=== PATIENT | male | born 1960 | race Caucasian/White ===

== ENCOUNTER 2018-06-11 07:13 | Outpatient (CLI) | payer OTHER, SELFPAY ==
[2018-06-11 08:36] LABS: Cholesterol 210 mg/dL (50-200); Glucose 100 mg/dL (70-100); HDL Cholesterol 52 mg/dL (40-60); LDL CHOLESTEROL 128 mg/dL (<100); Triglyceride 180 mg/dL (30-150)
== END 2018-06-11 07:33 ==
PROVIDERS: PCP Nurse Practitioner Family; Visit Provider Nurse Practitioner Family
DX: Z00.00 Encounter for general adult medical examination without abnormal findings (principal); Z13.1 Encounter for screening for diabetes mellitus; I10 Essential (primary) hypertension
CPT/HCPCS: 36415; 80061; 82947; 83721

== ENCOUNTER 2018-11-27 16:03 | Outpatient (REF) | payer OTHER, SELFPAY ==
[2018-11-27 19:59] LABS: Anion Gap 11.5 mmol/L (3-11); BUN 15 mg/dL (7-18); CO2 28.5 mmol/L (21.0-32.0); CREATININE 0.95 mg/dL (0.70-1.30); Calcium 9.4 mg/dL (8.5-10.1); Chloride 102 mmol/L (98-107); Glucose 92 mg/dL (70-100); Potassium 3.9 mmol/L (3.5-5.1); Sodium 142 mmol/L (136-145)
== END 2018-11-27 16:23 ==
LOC: NCHCN 16:03
PROVIDERS: PCP Nurse Practitioner Family; Visit Provider Nurse Practitioner Family
DX: I10 Essential (primary) hypertension (principal); M25.511 Pain in right shoulder
CPT/HCPCS: 80048

== ENCOUNTER 2019-03-11 11:09 | Day surgery (SDC) | payer OTHER, SELFPAY ==
--- NOTE | 2019-03-11 07:17 | W.COLOREPORT ---
Date of service: 03/11/19 Time of Service: 12:42 Colonoscopy Report Date of procedure: 03/11/19 Pre-op diagnosis general: Hx of polyps Post-op diagnosis procedure note: other (Diverticulosis) Procedure: Colonoscopy Surgeon: Cony Neal Anesthesia proc note operative: other (General/ ASA 2/Davina Law, NORAH) Estimated blood loss (mL): 3 Pathology: none sent Complications: None Disposition: same day Indications: Mr. Cavazos is a pleasant 58 year old male who was seen in the office for a follow up colonoscopy. He had a colonoscopy in 2011 and was found to have one sessile serrated adenoma and a hyperplastic polyp. Risks, benefits and complications have been reviewed. Complications include but are not limited to bleeding, pain, perforation, missed small lesion/polyp, sore throat, aspiration and adverse reaction to the medications. Questions were entertained and answered to their satisfaction and they wished to proceed. No guarantees were given or implied. Prep: Miralax/Dulcolax Procedure Start Time: 12:42 Procedure End Time: 13:10 Retraction Time: 18 minutes Findings: Diverticulosis Procedure Description: After informed consent was obtained the patient was taken to the procedure room and placed in a left decubitous position. Monitors were applied and a time out was done. The patients name, date of , procedure, allergies to medications and metal in their body was reviewed. The patient was then sedated. Once sedated and comfortable a rectal exam was done. External exam was normal. Internal exam revealed a normal sphincter tone and no palpable masses. The prostate felt smooth. The scope was then introduced and retro-flexed. No internal hemorrhoids were identified. The scope was then advanced to the cecum without difficulty. The TI and appendiceal orifice were identified. The prep was adequate. The scope was then slowly retracted over 18 minutes back into the rectum. There were no polyps identified. The procedure was difficult due to the patients coughing throughout the procedure. There was moderate diverticulosis noted in the sigmoid colon. The scope was removed and the patient was woken up and taken back to Same day surgery in stable condition. The patient tolerated the procedure well and there were no immediate complications. Follow up: The patient should follow up in 3 years, due to his previous history of sessile serrated adenoma, unless they develop changes in bowel habits or other new gastrointestinal complaints.
--- NOTE | 2019-03-11 07:18 | W.PM.DSUDISC ---
Discharge Plan Disposition Patient Disposition: HOME Condition: Good Discharge Details Reason For Visit: Hx of polyps Attending Provider: Cony Neal Primary Care Provider: Meghna Clark Home Meds and New Rx's Prescriptions: Continued aspirin [Adult Low Dose Aspirin] 81 mg tablet,delayed release (DR/EC) 81 mg PO DAILY RF: 0 epinephrine [EpiPen 2-Anibal] 0.3 mg/0.3 mL auto-injector 0.3 mg IM ONCE RF: 0 omega-3 fatty acids [Fish Oil Concentrate] 1,000 mg capsule 1,000 mg PO DAILY RF: 0 lisinopril 20 MG tablet 20 mg PO DAILY RF: 0 hydrochlorothiazide 25 MG tablet 25 mg PO DAILY RF: 0 Discontinued polyethylene glycol 3350 17 gram/dose powder 238 g PO ONCE Qty: 238 RF: 0 bisacodyl [Dulcolax (bisacodyl)] 5 mg tablet,delayed release (DR/EC) 5 mg PO ONCE Qty: 4 RF: 0 Discharge Instructions Instructions: Diverticulosis (DC) Additional Instructions: Findings: Diverticulosis Follow up: 3 years due to your history of previous pre-cancerous polyp Please call if you develop: fevers >101.5 Nausea or Vomiting Abdominal pain that is not transient DAY SURGERY UNIT POST ENDOSCOPY INSTRUCTIONS 1. Because there will be medication in your system for the next 24 hours, you may feel a little sleepy. Your coordination will be affected. Therefore: a. Do not drive or operate dangerous equipment for 24 hours. b. Do not drink alcohol beverages for 24 hours (not even beer). c. Plan to go home and rest for the day. 2. Generally there are no restrictions on your activity after a day or so has gone by, but you may feel a bit fatigued for a few days. 3 After you arrive home you may have a light meal and return to a normal diet as you can tolerate it without feeling sick to your stomach. 4. After surgery, you may feel pain or discomfort. This should be only transient, but if it persists please contact your doctor. 5. If there are any questions regarding the findings of your procedure, please feel free to contact your doctor. 6. If you are unable to contact your doctor with a problem, contact the hospital at [phone]. 7. Continue all your regular medications unless directed otherwise. I understand the above instructions and have no questions. Signature of Patient or Responsible Adult Escort Date/Time Name of Responsible Adult Escort Signature of Nurse Date/Time Activity:: Activity as Tolerated Diet:: High Fiber Diet Discharge Orders Discharge Orders: Discharge Order (Routine); Ordered 03/11/19 Ordered By: Cony Neal DS: Diagnosis Discharge Diagnosis (1) S/P colonoscopy: Status: Acute (2) Diverticulosis: Status: Acute
[2019-03-11 11:29] VITALS: BP 132/80; PULSE 87; RESP 18; TEMP 37.3; O2SAT 96
[2019-03-11] MEDS: Lactated Ringers 1,000 ML 80 ML IV (11:50)
[2019-03-11 13:48] VITALS: BP 100/57; PULSE 85; RESP 16; TEMP 37.4; O2SAT 96
== END 2019-03-11 14:14 | disposition home or self-care (01) ==
PROVIDERS: PCP Nurse Practitioner Family; Visit Provider Surgery
PROC: 0DJD8ZZ Inspection of Lower Intestinal Tract, Via Natural or Artificial Opening Endoscopic (ICD-10-PCS; CPT 45378; principal; 2019-03-11 12:45)
DX: Z12.11 Encounter for screening for malignant neoplasm of colon (principal); Z86.010 Personal history of colon polyps; K57.30 Diverticulosis of large intestine without perforation or abscess without bleeding; I10 Essential (primary) hypertension
CPT/HCPCS: 45378

== ENCOUNTER 2019-05-25 01:44 | Outpatient (CLI) | payer OTHER, SELFPAY ==
[2019-05-25 11:28] LABS: Glucose 93 mg/dL (74-106)
[2019-05-25 11:58] LABS: Calculated LDL 116 mg/dL; Cholesterol 190 mg/dL (<200); HDL Cholesterol 49 mg/dL (40-60); Triglyceride 129 mg/dL (<150)
== END 2019-05-25 02:04 ==
PROVIDERS: PCP Nurse Practitioner Family; Visit Provider Nurse Practitioner Family
DX: Z00.00 Encounter for general adult medical examination without abnormal findings (principal); Z13.1 Encounter for screening for diabetes mellitus; Z13.220 Encounter for screening for lipoid disorders
CPT/HCPCS: 36415; 80061; 82947

== ENCOUNTER 2019-12-17 22:58 | Outpatient (REF) | payer OTHER, SELFPAY ==
[2019-12-17 20:14] LABS: Anion Gap 8.5 mmol/L (3-11); BUN 19 mg/dL (7-18); CO2 30.5 mmol/L (21.0-32.0); CREATININE 1.08 mg/dL (0.70-1.30); Calcium 9.4 mg/dL (8.5-10.1); Chloride 102 mmol/L (98-107); Glucose 98 mg/dL (74-106); Potassium 4.3 mmol/L (3.5-5.1); Sodium 141 mmol/L (136-145)
== END 2019-12-17 23:18 ==
LOC: NCHCN 22:58
PROVIDERS: PCP Nurse Practitioner Family; Visit Provider Nurse Practitioner Family
DX: I10 Essential (primary) hypertension (principal); E66.9 Obesity, unspecified; M19.011 Primary osteoarthritis, right shoulder; J30.9 Allergic rhinitis, unspecified
CPT/HCPCS: 80048

== ENCOUNTER 2020-02-13 19:07 | Outpatient (REF) | payer OTHER, SELFPAY ==
[2020-02-15 22:23] LABS: Patient Race White; SARS-CoV-2 RNA Undetected (Undetected); SARS-CoV-2 Specimen Source Nasopharynx
== END 2020-02-13 19:27 ==
LOC: NCHCN 19:07
PROVIDERS: PCP Nurse Practitioner Family; Visit Provider Nurse Practitioner Family
DX: R05 Cough (principal)
CPT/HCPCS: U0003

== ENCOUNTER 2020-05-29 02:22 | Outpatient (CLI) | payer OTHER, SELFPAY ==
[2020-05-29 08:44] LABS: Calculated LDL 113 mg/dL (<100); Cholesterol 187 mg/dL (<200); Glucose 97 mg/dL (74-106); HDL Cholesterol 52 mg/dL (40-60); Triglyceride 112 mg/dL (<150)
== END 2020-05-29 02:42 ==
PROVIDERS: PCP Nurse Practitioner Family; Visit Provider Nurse Practitioner Family
DX: Z00.00 Encounter for general adult medical examination without abnormal findings (principal); I10 Essential (primary) hypertension; E66.9 Obesity, unspecified; J30.9 Allergic rhinitis, unspecified
CPT/HCPCS: 36415; 80061; 82947

== ENCOUNTER 2020-11-27 17:13 | Outpatient (REF) | payer OTHER, SELFPAY ==
[2020-11-27 14:17] LABS: Calculated LDL 117 mg/dL (<100); Cholesterol 188 mg/dL (<200); HDL Cholesterol 50 mg/dL (40-60); Triglyceride 106 mg/dL (<150)
== END 2020-11-27 17:14 | disposition home or self-care (01) ==
LOC: NCHCN 17:13
PROVIDERS: PCP Nurse Practitioner Family; Visit Provider Nurse Practitioner Family
DX: Z00.00 Encounter for general adult medical examination without abnormal findings (principal); Z13.220 Encounter for screening for lipoid disorders
CPT/HCPCS: 80061

== ENCOUNTER 2021-06-01 16:06 | Outpatient (REF) | payer OTHER, SELFPAY ==
[2021-06-01 21:28] LABS: Anion Gap 9.7 mmol/L (3-11); BUN 21 mg/dL (7-18); CO2 28.3 mmol/L (21.0-32.0); Calcium 8.8 mg/dL (8.5-10.1); Chloride 101 mmol/L (98-107); Glucose 103 mg/dL (74-106); Potassium 3.8 mmol/L (3.5-5.1); Sodium 139 mmol/L (136-145)
== END 2021-06-01 16:07 | disposition home or self-care (01) ==
LOC: NCHCN 16:06
PROVIDERS: PCP Nurse Practitioner Family; Visit Provider Nurse Practitioner Family
DX: I10 Essential (primary) hypertension (principal); Z00.00 Encounter for general adult medical examination without abnormal findings
CPT/HCPCS: 80048

== ENCOUNTER 2021-11-19 01:54 | Outpatient (CLI) | payer OTHER, SELFPAY ==
[2021-11-19 08:15] LABS: Calculated LDL 108 mg/dL (<100); Cholesterol 183 mg/dL (<200); HDL Cholesterol 53 mg/dL (40-60); Triglyceride 112 mg/dL (<150)
== END 2021-11-19 01:55 | disposition home or self-care (01) ==
LOC: LBO 01:54
PROVIDERS: PCP Nurse Practitioner Family; Visit Provider Nurse Practitioner Family
DX: Z00.00 Encounter for general adult medical examination without abnormal findings (principal); Z13.220 Encounter for screening for lipoid disorders
CPT/HCPCS: 36415; 80061

== ENCOUNTER 2021-12-10 01:11 | Outpatient (CLI) | payer OTHER, SELFPAY ==
--- NOTE | 2021-12-10 | DI.RAD_ITS ---
Exam(s) XR KNEE RT 3V AP,LAT,TERRI EXAM: XR KNEE RT 3V AP,LAT,TERRI CLINICAL HISTORY: RT KNEE PAIN, M25.561. TECHNIQUE: 2D digital imaging was performed. COMPARISON: CR LEFT KNEE 3 VIEW COMPLETE from 11/18/2014 FINDINGS: 3 views No evidence of acute fracture although there does appear to be a small joint effusion. There are moderate degenerative changes of the medial compartment. On the upright film there is mode rate narrowing of the medial compartment and small marginal osteophytes. Lateral compartment exhibit s normal height. Some degenerative changes noted in the patellofemoral compartment-moderate. No oss eous lesions. Bone density normal. IMPRESSION: Moderate degenerative changes, most evident in the medial compartment. Small joint effusion DATA REPOSITORY: RADIATION DOSE DELIVERED:
== END 2021-12-10 01:31 ==
LOC: DI 01:11
PROVIDERS: PCP Nurse Practitioner Family; Visit Provider Nurse Practitioner Family
DX: M17.11 Unilateral primary osteoarthritis, right knee (principal); M25.461 Effusion, right knee
CPT/HCPCS: 73562

== ENCOUNTER 2022-05-16 21:45 | Outpatient (REF) | payer OTHER, SELFPAY ==
[2022-05-16 20:15] LABS: Anion Gap 9.8 mmol/L (3-11); BUN 19 mg/dL (7-18); CO2 28.2 mmol/L (21.0-32.0); CREATININE 1.1 mg/dL (0.70-1.30); Chloride 103 mmol/L (98-107); Estimated GFR 76.85 (mL/min/1.73m2); Glucose 104 mg/dL (74-106); Potassium 3.9 mmol/L (3.5-5.1); Sodium 141 mmol/L (136-145)
== END 2022-05-16 21:46 | disposition home or self-care (01) ==
LOC: NCHCN 21:45
PROVIDERS: PCP Nurse Practitioner Family; Visit Provider Nurse Practitioner Family
DX: I10 Essential (primary) hypertension (principal)
CPT/HCPCS: 80048

== ENCOUNTER 2022-07-08 10:40 | Outpatient (CLI) | payer OTHER, SELFPAY ==
--- NOTE | 2022-07-08 09:30 | DI.RAD_ITS ---
Exam(s) XR KNEE LT 3V AP,LAT,TERRI EXAM: XR KNEE LT 3V AP,LAT,TERRI CLINICAL HISTORY: left knee pain. TECHNIQUE: 2D digital imaging was performed of the left knee. Three images were obtained. AP, late ral and PA tunnel views were obtained. COMPARISON: CR XR KNEE RT 3V AP,LAT,TERRI from 12/10/2021 FINDINGS: BONES: No acute fracture is present. No bony destructive lesion is seen. JOINTS: The knee is normally aligned. There is a small joint effusion. There is moderate narrowing o f the medial femoral tibial joint. Periarticular spurring is seen involving all 3 joint compartments . SOFT TISSUE: Normal. IMPRESSION: Moderate osteoarthritis. DATA REPOSITORY: RADIATION DOSE DELIVERED:
== END 2022-07-08 10:41 | disposition home or self-care (01) ==
LOC: DIORS 10:40
PROVIDERS: PCP Nurse Practitioner Family; Visit Provider Physician Assistant
DX: M25.562 Pain in left knee (principal); M17.12 Unilateral primary osteoarthritis, left knee; M25.462 Effusion, left knee
CPT/HCPCS: 73562

== ENCOUNTER 2022-11-03 03:16 | Outpatient (CLI) | payer OTHER, SELFPAY ==
[2022-11-03 08:04] LABS: Calculated LDL 88 mg/dL (<100); Cholesterol 161 mg/dL (<200); HDL Cholesterol 53 mg/dL (40-60); Triglyceride 102 mg/dL (<150)
== END 2022-11-03 03:17 | disposition home or self-care (01) ==
LOC: LBO 03:16
PROVIDERS: PCP Nurse Practitioner Family; Visit Provider Nurse Practitioner Family
DX: E78.89 Other lipoprotein metabolism disorders (principal)
CPT/HCPCS: 36415; 80061

== ENCOUNTER 2023-07-26 16:26 | Outpatient (REF) | payer OTHER, SELFPAY ==
[2023-07-26 20:07] LABS: Anion Gap 8.1 mmol/L (3-11); BUN 20 mg/dL (7-18); CO2 28.9 mmol/L (21.0-32.0); CREATININE 0.9 mg/dL (0.70-1.30); Calcium 9.2 mg/dL (8.5-10.1); Chloride 103 mmol/L (98-107); Estimated GFR 97.17 (mL/min/1.73m2); Glucose 103 mg/dL (74-106); Potassium 3.9 mmol/L (3.5-5.1); Sodium 140 mmol/L (136-145)
== END 2023-07-26 16:27 | disposition home or self-care (01) ==
LOC: NCHCN 16:26
PROVIDERS: PCP Nurse Practitioner Family; Visit Provider Nurse Practitioner Family
DX: I10 Essential (primary) hypertension (principal)
CPT/HCPCS: 80048

== ENCOUNTER 2024-05-27 15:35 | Outpatient (REF) | payer OTHER, SELFPAY | END 2024-05-27 15:36 | disposition home or self-care (01) | LOC: LBN 15:35 | PROVIDERS: PCP Nurse Practitioner Family; Visit Provider Physician Assistant | DX: L98.9 Disorder of the skin and subcutaneous tissue, unspecified (principal); N30.90 Cystitis, unspecified without hematuria; L02.91 Cutaneous abscess, unspecified | CPT/HCPCS: 87077; 87070; 87186; 87205 ==

== ENCOUNTER 2024-05-29 10:03 | Inpatient (IN) | payer OTHER, SELFPAY ==
[2024-05-29] VITALS (12 sets, daily range): BP systolic 100–160; BP diastolic 60–90; PULSE 66–90; RESP 12–18; TEMP 36.6–37.1; O2SAT 96–99
--- NOTE | 2024-05-29 10:17 | W.ED.GENAD ---
Discharge Plan Disposition Patient Disposition: Admit to [facility] Condition: Stable Discharge Details Chief Complaint: Cellulitis Clinical Impression: Cellulitis of groin Primary Care Provider: Meghna Clark ED Provider: Tavo Zambrano Home Meds and New Rx's Prescriptions: No Action aspirin [Adult Low Dose Aspirin] 81 mg tablet,delayed release (DR/EC) 81 mg PO DAILY epinephrine [EpiPen 2-Anibal] 0.3 mg/0.3 mL auto-injector 0.3 mg IM ONCE omega-3 fatty acids [Fish Oil Concentrate] 1,000 mg capsule 1,000 mg PO DAILY cephalexin 500 mg capsule 500 mg PO QID Qty: 40 0RF doxycycline hyclate 100 mg capsule 100 mg PO BID Qty: 20 0RF glucosamine-chondroitin [Osteo Bi-Flex] 250-200 mg tablet 2 tab PO DAILY Rx Instructions: give after food/meal hydrochlorothiazide 25 mg tablet 25 mg PO DAILY Qty: 90 3RF lisinopril 20 mg tablet 20 mg PO DAILY Qty: 90 3RF HPI General Date/Time Provider Initiated Documentation: 05/29/24 10:13. HPI Narrative: 63 year-old male presents to ED today by POV/ambulating with his with a chief complaint of known abscesses seen at - with lancing and placed on cephalexin and doxycycline, but they are still draining and getting larger. Quality described as painful areas to R medial thigh, and L suprapubic area, no radiation to fever, chills, body aches, nausea, dysuria, weakness, tachycardia. Severity is described as severe. Palliating factors include antibiotics with worsening. Provoking factors include nothing specific, palpation. Patient not anticoagulated. Related Data Home Medications ?Medication ?Instructions ?Recorded ?Confirmed aspirin 81 mg tablet,delayed 81 mg PO DAILY 01/08/19 05/29/24 release (Adult Low Dose Aspirin) epinephrine 0.3 mg/0.3 mL 0.3 mg IM ONCE 01/08/19 05/29/24 injection, auto-injector (EpiPen 2-Anibal) omega-3 fatty acids 1,000 mg 1,000 mg PO DAILY 01/08/19 05/29/24 capsule (Fish Oil Concentrate) glucosamine-chondroitin 250 mg-200 2 tab PO DAILY 04/04/24 05/29/24 mg tablet (Osteo Bi-Flex) hydrochlorothiazide 25 mg tablet 25 mg PO DAILY #90 tabs 04/24/24 05/29/24 lisinopril 20 mg tablet 20 mg PO DAILY #90 tabs 05/14/24 05/29/24 cephalexin 500 mg capsule 500 mg PO QID #40 caps 05/27/24 05/29/24 doxycycline hyclate 100 mg capsule 100 mg PO BID #20 caps 05/27/24 05/29/24 Previous Rx's ?Medication ?Instructions ?Recorded hydrochlorothiazide 25 mg tablet 25 mg PO DAILY #90 tabs 04/24/24 lisinopril 20 mg tablet 20 mg PO DAILY #90 tabs 05/14/24 cephalexin 500 mg capsule 500 mg PO QID #40 caps 05/27/24 doxycycline hyclate 100 mg capsule 100 mg PO BID #20 caps 05/27/24 Allergies Allergy/AdvReac Type Severity Reaction Status Date / Time Sulfa (Sulfonamide Allergy Unknown Skin Rash Verified 05/29/24 10:13 Antibiotics) venom-honey bee (bee venom Allergy Unknown Swelling/Ed Verified 05/29/24 10:13 (honey bee)) jad General Stated Complaint: Cellulitis VERONA: 3 Review of Systems All systems reviewed & are unremarkable except as noted in HPI and below Exam Narrative Exam Narrative: GENERAL APPEARANCE: Well-nourished, non-toxic, awake and alert, atraumatic, no acute distress. SKIN: Warm, pink, dry, large indurated swollen red areas draining purulent material to the right medial thigh as well as left suprapubic area, the right medial thigh area is about 8 x 4 cm of induration, the left suprapubic area is about 4 x 5 cm of induration with some base of penile shaft involvement and swelling, no fluctuant areas to drain at this time, there is scant purulent material draining HEAD: Normocephalic, atraumatic, normal hair distribution for gender/age. EYES: Normal conjunctiva, no exudates on lids/lashes. ENT: Nares patent, no circumoral cyanosis, no facial swelling NECK: Supple, trachea midline, painless cervical ROM. LUNGS/CHEST: Non-labored respirations, normal A/P diameter, symmetrical expansion, no chest wall deformity HEART (CV/PV): No peripheral edema, no JVD. ABDOMEN: Soft, non-distended, no guarding. MSK: Normal ROM, no swelling/deformity to bilateral UEs or LEs, moving all extremities without weakness, no cyanosis, spine midline without tenderness, normal curvature. NEURO: Mental Status AAOx4 - alert to person, place, time, events No facial droop, no forehead involvement. Motor: No focal weakness - strength 5/5 in bilateral UEs and LEs, proximal and distal, symmetric. Sensory: sensation intact to light touch globally. Gait normal: patient ambulated without ataxia into ED room. PSYCH: euthymic, cooperative, pleasant, appropriate speech Course Vital Signs Vital signs: Vital Signs Temperature 36.7 C 05/29/24 10:06 Pulse 90 05/29/24 10:06 Respiratory Rate 16 05/29/24 10:06 Blood Pressure 146/81 H 05/29/24 10:06 Pulse Oximetry 96 05/29/24 10:06 Temperature 36.7 C 05/29/24 10:06 Temperature Source Temporal Artery Scan 05/29/24 10:06 Pulse 90 05/29/24 10:06 Respiratory Rate 16 05/29/24 10:06 Blood Pressure 146/81 H 05/29/24 10:06 Blood Pressure Position Sitting 05/29/24 10:06 Pulse Oximetry 96 05/29/24 10:06 Oxygen Delivery Method Room Air 05/29/24 10:06 Oxygen Flow Rate 0 05/29/24 10:06 Pain Level 7 05/29/24 10:06 Medical Decision Making This dictation utilizes [id number] dictation software and may contain unedited grammatical errors. 63 year-old male presents to ED today by POV/ambulating with his with a chief complaint of known abscesses seen at - with lancing and placed on cephalexin and doxycycline, but they are still draining and getting larger. Quality described as painful areas to R medial thigh, and L suprapubic area, no radiation to fever, chills, body aches, nausea, dysuria, weakness, tachycardia. Severity is described as severe. Palliating factors include antibiotics with worsening. Provoking factors include nothing specific, palpation. Patients' medical history: Obesity, hypertension. Family and social history: Noncontributory. Pertinent exam findings / vital signs include large indurated swollen red areas draining purulent material to the right medial thigh as well as left suprapubic area, the right medial thigh area is about 8 x 4 cm of induration, the left suprapubic area is about 4 x 5 cm of induration with some base of penile shaft involvement and swelling, no fluctuant areas to drain at this time, there is scant purulent material draining, nontoxic vitals, afebrile. Differential / pathologies of concern include cellulitis, abscess, Oral's gangrene. Diagnostic studies of: -CBC, CMP, CT pelvis with extension to the right lower extremity. -CBC shows no leukocytosis -CMP no actionable abnormality -CT shows large right medial thigh cellulitis as well as a left suprapubic cellulitis with extension to the penile shaft with no discernible drainable fluid collection at this time Interventions of: -IV vancomycin, admit to hospitalist after consult with general surgery. ED Course/Assessment/Plan: 63-year-old male presents with known MRSA positive abscesses to the right medial thigh and left suprapubic area, these are draining, there is no discernible fluid pocket to drain at this time, CT shows some extension of the suprapubic infection to the penile shaft, and close proximity to the scrotum and I think the patient should be admitted for ops on IV antibiotics and reassessed to ensure trending in the correct direction and not at risk for Oral's gangrene, I spoke with general surgery Dr. Wyman agrees with this plan, and placed the patient on IV vancomycin and spoke with Dr. Powell who accepted the patient for admission at 1430. Disposition of Cellulitis of Groin. Patient verbalized understanding of the plan and return to ED criteria and engaged in shared decision making. Medical Records Medical records reviewed: Yes I reviewed the patient's medical records. Imaging Data Radiologic Study: Attestation: I personally reviewed and interpreted this imaging study as follows: Imaging: CT Scan My impression: In discussion with Dr. Wyman- as the CT Pelvis was not supposed to be cancelled- there is infection spreading to penile shaft. Radiologist's impression: EXAM: CT LOWER EXTREMITY RT W CLINICAL HISTORY: R inner thigh abscess. TECHNIQUE: Imaging Protocol: Axial computed tomography images with coronal and sagittal reformatted images were created and reviewed. CONTRAST MATERIAL: Intravenous: Omnipaque 350. Contrast Volume: 100 ML COMPARISON: No exams were available for comparison FINDINGS: Bones: The osseous structures and articular surfaces are intact. Bony alignment is satisfactory. No cellulitic or osteomyelitic changes are identified. Degenerative changes are seen in the right knee. No lytic or sclerotic lesions are identified. Soft Tissues: There is skin thickening in the medial aspect of the right thigh with infiltration of the subcutaneous tissues. There is a 1.3 x 1 cm superficial fluid collection which may represent a small abscess (series 14, image 66) and (series 4, image 719). The underlying musculature is unremarkable. No subcutaneous gas is seen. IMPRESSION: 1. Cellulitis in the medial aspect of the right thigh with a superficial 1.3 x 1 cm fluid collection which may represent a small abscess. No subcutaneous gas is seen. 2. No findings to suggest osteomyelitis. Lab Data Lab results reviewed: Yes I reviewed the patient's lab results. Labs: Laboratory Tests Range/Units 05/29/24 10:42 WBC (4.4-10.8) 10^3/uL 9.05 RBC (4.36-5.78) 10^6/uL 4.35 L Hgb (13.5-17.5) g/dL 14.1 Hct (40.0-50.0) % 42.1 MCV (80-95) fL 97 H MCH (27.0-33.0) pg 32.4 MCHC (32.0-36.0) % 33.5 RDW (11.8-14.1) % 12.2 Plt Count (130-400) 10^3/uL 351 MPV (8.0-11.0) fL 9.5 Immature Gran % % 0.3 Neutrophils % % 70.4 Lymphocytes % % 11.9 Monocytes % % 12.5 Eosinophils % % 4.5 Basophils % % 0.4 Nucleated RBC % (0.0-0.3) % 0.0 Absolute Neutrophils (1.2-6.7) 10^3/uL 6.36 Absolute Lymphocytes (1.2-3.4) 10^3/uL 1.08 L Absolute Monocytes (0.1-0.8) 10^3/uL 1.13 H Absolute Eosinophils (0.0-0.7) 10^3/uL 0.41 Absolute Basophils (0.0-0.2) 10^3/uL 0.04 Sodium (136-145) mmol/L 141 Potassium (3.5-5.1) mmol/L 3.7 Chloride (98-107) mmol/L 103 Carbon Dioxide (21.0-32.0) mmol/L 29.6 Anion Gap (3-11) mmol/L 8.4 BUN (7-18) mg/dL 19 H Creatinine (0.70-1.30) mg/dL 0.9 Est GFR (CKD-EPI 2020) (mL/min/1.73m2) 96.57 Glucose (74-106) mg/dL 110 H Calcium (8.5-10.1) mg/dL 9.1 Total Bilirubin (0.2-1.0) mg/dL 0.63 AST (15-37) U/L 13 L ALT (16-63) U/L 23 Alkaline Phosphatase (46-116) U/L 77 Total Protein (6.4-8.2) g/dL 8.0 Albumin (3.4-5.0) g/dL 3.5 Quality:[facility] Health Related Social Needs: No Data to Display PFSH All Active Problems (Updated 05/29/24 @ 14:40 by JOCELYNN Marte) Cellulitis of groin (Acute) Decreased hearing (Acute) Degenerative joint disease of knee (Acute) Osteoarthritis of right glenohumeral joint (Acute) Knee pain, bilateral (Acute) Snoring (Acute) Abnormal cholesterol test (Acute) Degenerative joint disease of right knee (Acute) DEPO MEDROL 07/25/22 Left knee DJD (Acute) DEPO MEDROL 07/25/22 Diverticulosis (Acute) S/P colonoscopy (Acute ~03/11/19) 2008- sessile serrated adenoma and hyperplastic polyp Bee sting allergy (Acute) Obesity (Chronic) Hypertension (Chronic) Medical History Screening for colon cancer Allergic rhinitis Allergy to insects and arachnids Tobacco use disorder Strain of right calf muscle Resolved - Placed at [facility] on 05/13/2022 History of colon polyps Surgical History History of surgical removal of skin lesion R under arm Family History Sister Breast cancer Hypertension Mother Diabetes Hypertension Father Hypertension Social History Smoking/Tobacco Use Status: Never Smokeless tobacco user: chewing tobacco Quit status: has quit before Second Hand Exposure: Yes Smoking risk assessment performed?: Yes Alcohol Intake: current Alcohol Intake frequency: 0-2 drinks per day Alcohol type: beer Drug use: Never Substance use type: does not use Details: last chew: [id number]. 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 Pets and animals: Yes Pets and animals: cat(s) Sexually active: Yes Do you think of yourself as: straight/heterosexual Current gender identity: male What is your relationship status?: How often do you talk on the phone with friends or family?: twice per week How often do you get together with friends or relatives?: twice per week Do you belong to any clubs or organized social groups?: no Panel score (0-1 are the most socially isolated patients): 2 What type of physical activity do you participate in: walking and additional Details: stretching Duration: 30-45 minutes/day Frequency: daily Nuria/Rastafarian: Jewish Special nuria needs: No Seatbelt use: always Drive 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
--- NOTE | 2024-05-29 10:30 | DI.CT_ITS ---
Exam(s) CT LOWER EXTREMITY RT W EXAM: CT LOWER EXTREMITY RT W CLINICAL HISTORY: R inner thigh abscess. TECHNIQUE: Imaging Protocol: Axial computed tomography images with coronal and sagittal reformatted images were created and reviewed. CONTRAST MATERIAL: Intravenous: Omnipaque 350. Contrast Volume: 100 ML COMPARISON: No exams were available for comparison FINDINGS: Bones: The osseous structures and articular surfaces are intact. Bony alignment is satisfactory. N o cellulitic or osteomyelitic changes are identified. Degenerative changes are seen in the right kne e. No lytic or sclerotic lesions are identified. Soft Tissues: There is skin thickening in the medial aspect of the right thigh with infiltration of t he subcutaneous tissues. There is a 1.3 x 1 cm superficial fluid collection which may represent a sm all abscess (series 14, image 66) and (series 4, image 719). The underlying musculature is unremarka ble. No subcutaneous gas is seen. IMPRESSION: 1. Cellulitis in the medial aspect of the right thigh with a superficial 1.3 x 1 cm fluid collection which may represent a small abscess. No subcutaneous gas is seen. 2. No findings to suggest osteomyelitis. RADIATION DOSE DELIVERED: 1,277.4mGy.cm Total DLP 1,277.4mGy.cm Total DLP DATA REPOSITORY: All CT scans at this facility are submitted to the National Radiology Data Registry (NRDR) Dose Index Registry (DIR) with the [employer] (A[employer]). RADIATION OPTIMIZATION: All CT scans at this facility use at least one of these dose optimization te chniques: automated exposure control; mA and/or kV adjustment per patient size (includes targeted exa ms where dose is matched to clinical indication); or iterative reconstruction.
[2024-05-29 10:48] LABS: Abs Immature Grans 0.03 10^3/uL (0.0-0.06); Absolute Basophil Count 0.04 10^3/uL (0.0-0.2); Absolute Eosinophil Count 0.41 10^3/uL (0.0-0.7); Absolute Lymphocyte Count 1.08 10^3/uL (1.2-3.4); Absolute Monocyte Count 1.13 10^3/uL (0.1-0.8); Absolute Neutrophil Count 6.36 10^3/uL (1.2-6.7); Basophils % 0.4 %; Eosinophils % 4.5 %; HCT 42.1 % (40.0-50.0); HGB 14.1 g/dL (13.5-17.5); Immature Grans % 0.3 %; Lymphocytes % 11.9 %; MCH 32.4 pg (27.0-33.0); MCHC 33.5 % (32.0-36.0); MCV 97 fL (80-95); MPV 9.5 fL (8.0-11.0); Monocytes % 12.5 %; Neutrophils % 70.4 %; Platelet Count 351 10^3/uL (130-400); RBC 4.35 10^6/uL (4.36-5.78); RDW 12.2 % (11.8-14.1); RDW-SD 43.7 fL; WBC 9.05 10^3/uL (4.4-10.8)
[2024-05-29 11:05] LABS: ALT 23 U/L (16-63); AST 13 U/L (15-37); Albumin 3.5 g/dL (3.4-5.0); Alkaline Phosphatase 77 U/L (46-116); Anion Gap 8.4 mmol/L (3-11); BUN 19 mg/dL (7-18); Bilirubin, Total 0.63 mg/dL (0.2-1.0); CO2 29.6 mmol/L (21.0-32.0); CREATININE 0.9 mg/dL (0.70-1.30); Calcium 9.1 mg/dL (8.5-10.1); Chloride 103 mmol/L (98-107); Estimated GFR 96.57 (mL/min/1.73m2); Glucose 110 mg/dL (74-106); Potassium 3.7 mmol/L (3.5-5.1); Sodium 141 mmol/L (136-145)
[2024-05-29] MEDS: Omnipaque 350 MG/ML 100 ML BTL IJ (12:27)
--- NOTE | 2024-05-29 14:14 | SCONE_ITS ---
Date of service: 05/29/24 Time of Service: 14:14 Assessment and Plan Assessment and plan (1) Abscess of right thigh: Status: Acute Assessment and plan: I was able to review the CT scan, and clearly there is quite a bit of cellulitis in the area. From the physical exam, it seems like the incision sites are probably adequate. I remove the old packing from the suprapubic area, and I think with some irrigation and new packing this will improve. Hopefully, the intravenous antibiotics will help as well. I have gone ahead and placed some nursing orders for dressing changes each shift. I am hopeful that this will not require any more operative debridement, but will reassess the wounds tomorrow make a decision at that point. History of Present Illness History of Present Illness Chief Complaint: Cellulitis Narrative: Sushil is 63 years old. He comes to the emergency department with draining wounds. He first noticed them about a week and 1/2 to 2 weeks ago. He describes them as areas of pain in the suprapubic region, and on the inside part of the right thigh. He thinks there may have been a little bit of redness associated with this. Over the course of about a week, they coalesced into a pimple, and he thinks it was on Monday at the 1 in the suprapubic region started draining spontaneously. He had some relief of pain in the area, but had some concerns regarding the nature of the drainage, and some spreading redness and swelling. He went to urgent care yesterday. They performed incision and drainage of these wounds, and it sounds like they packed them with some basic wound packing. Cultures were obtained. He tells me that the packing fell out of the thigh wound on its own, and when the wound continued to drain today, he came to the emergency department. It sounds like the wound cultures so far show MRSA, but without any specific antibiotic sensitivities. Review of Systems Constitutional Constitutional: Reports chills, Reports fatigue and Reports fever(s) Eyes Eyes: Reports system reviewed and no additional complaints, except as documented ENT Ears, Nose, Mouth, and Throat: Reports system reviewed and no additional complaints, except as documented Cardiovascular Cardiovascular: Denies chest pain and Denies dyspnea Respiratory Respiratory: Denies chest congestion, Reports cough, Denies excessive phlegm production and Denies dyspnea Gastrointestinal Gastrointestinal: Reports system reviewed and no additional complaints, except as documented Genitourinary Genitourinary: Denies hematospermia, Denies hematuria, Denies difficulty urinating, Reports genital pain and Denies testicular pain Musculoskeletal Musculoskeletal: Reports system reviewed and no additional complaints, except as documented Neurologic Neurologic: Reports system reviewed and no additional complaints, except as documented Psychiatric Psychiatric: Reports system reviewed and no additional complaints, except as documented Endocrine Endocrine: Reports fatigue Hematologic/Lymphatic Hematologic/Lymphatic: Denies easy bleeding and Denies easy bruising PFSH All Active Problems Discharge planning issues (Acute) On deep vein thrombosis (DVT) prophylaxis (Acute) Abscess of right thigh (Acute) Cellulitis of groin (Acute) Decreased hearing (Acute) Degenerative joint disease of knee (Acute) Osteoarthritis of right glenohumeral joint (Acute) Knee pain, bilateral (Acute) Snoring (Acute) Abnormal cholesterol test (Acute) Degenerative joint disease of right knee (Acute) DEPO MEDROL 07/25/22 Left knee DJD (Acute) DEPO MEDROL 07/25/22 Diverticulosis (Acute) S/P colonoscopy (Acute ~03/11/19) 2008- sessile serrated adenoma and hyperplastic polyp Bee sting allergy (Acute) Obesity (Chronic) Hypertension (Chronic) Medical History Screening for colon cancer Allergic rhinitis Allergy to insects and arachnids Tobacco use disorder Strain of right calf muscle Resolved - Placed at [facility] on 05/13/2022 History of colon polyps Surgical History History of surgical removal of skin lesion R under arm Family History Sister Breast cancer Hypertension Mother Diabetes Hypertension Father Hypertension Social History Smoking/Tobacco Use Status: Never Smokeless tobacco user: chewing tobacco Quit status: has quit before Second Hand Exposure: Yes Smoking risk assessment performed?: Yes Alcohol Intake: current Alcohol Intake frequency: 0-2 drinks per day Alcohol type: beer Drug use: Never Substance use type: does not use Details: last chew: 2099. 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 Pets and animals: Yes Pets and animals: cat(s) Sexually active: Yes Do you think of yourself as: straight/heterosexual Current gender identity: male What is your relationship status?: How often do you talk on the phone with friends or family?: twice per week How often do you get together with friends or relatives?: twice per week Do you belong to any clubs or organized social groups?: no Panel score (0-1 are the most socially isolated patients): 2 What type of physical activity do you participate in: walking and additional Details: stretching Duration: 30-45 minutes/day Frequency: daily Nuria/Christian: Amish Special nuria needs: No Seatbelt use: always Drive intox or ride w/intox driver lifter of sanitation truck: No Do you feel safe at home: Yes Do you feel safe in your relationship?: Yes Exam Const General: cooperative, healthy appearing and comfortable Nutritional Appearance: overweight Orientation: alert, awake and oriented x3 HENMT Head: normal to inspection Neck Neck: normal visual inspection, full ROM and no lymphadenopathy GI Inspection: normal to inspection and non-distended Palpation: soft and nontender Other: There is erythema and induration of the left suprapubic region that extends a little bit down to the base of the penis. I removed the old packing, gently irrigated. Back/Spine/Pelvis Other: On the upper inner portion of the right thigh, almost towards the perineum is an area of induration and a little bit of desquamation of the I&D site. This wound tracks slightly anteriorly about 3 cm. Results Last Vital Signs Temp 98.1 F 05/29/24 10:06 Pulse 90 05/29/24 10:06 Resp 16 05/29/24 10:06 BP 146/81 H 05/29/24 10:06 Pulse Ox 96 05/29/24 10:06 Labs 05/29/24 10:42 05/29/24 10:42 Labs: Laboratory Results - last 24 hr 05/29/24 10:42 WBC 9.05 RBC 4.35 L Hgb 14.1 Hct 42.1 MCV 97 H MCH 32.4 MCHC 33.5 RDW 12.2 Plt Count 351 MPV 9.5 Immature Gran % 0.3 Neutrophils % 70.4 Lymphocytes % 11.9 Monocytes % 12.5 Eosinophils % 4.5 Basophils % 0.4 Nucleated RBC % 0.0 Absolute Neutrophils 6.36 Absolute Lymphocytes 1.08 L Absolute Monocytes 1.13 H Absolute Eosinophils 0.41 Absolute Basophils 0.04 Sodium 141 Potassium 3.7 Chloride 103 Carbon Dioxide 29.6 Anion Gap 8.4 BUN 19 H Creatinine 0.9 Est GFR (CKD-EPI 2020) 96.57 Glucose 110 H Calcium 9.1 Total Bilirubin 0.63 AST 13 L ALT 23 Alkaline Phosphatase 77 Total Protein 8.[address] scan - pelvis: report reviewed and image reviewed
--- NOTE | 2024-05-29 14:29 | HPE_ITS ---
Date of service: 05/29/24 Time of Service: 14:29 Assessment and Plan Assessment and plan (1) Cellulitis of groin: Status: Acute Assessment and plan: As per CT no gas collection no cellulitis in the setting of considering Oral or gas gangrene Ongoing surgical consult Blood and wound cultures Vancomycin IV Ceftriaxone IV initiated but will discontinue as only MRSA was seen in cultures from 05/27/2024 (2) Abscess of right thigh: Status: Acute Assessment and plan: As above (3) Hypertension: Status: Chronic Assessment and plan: Continue home med regimen (4) On deep vein thrombosis (DVT) prophylaxis: Status: Acute Assessment and plan: Teds (5) Discharge planning issues: Status: Acute Assessment and plan: Discharge home without services when medically stable Discussed with Dr. Powell History of Present Illness History of Present Illness Chief Complaint: Abscesses to right medial thigh and left suprapubic areas Narrative: This 61-year-old male patient with past medical history of hypertension, tobacco use disorder, hyperlipidemia presented today to the ED at an [facility] via private vehicle and ambulating with spouse with chief complaint of known abscesses treated with cephalexin and doxycycline status post lancing. Increased drainage and larger abscesses reported. Patient denied chills, body aches, nausea, weakness, dysuria. No acute tachycardia or fever on arrival to the ED noted. CBC and chemistry blood work was unremarkable in the ED, CBC and chemistry blood work was unremarkable; without leukocytosis. Right lower extremity CT showed cellulitis to the medial aspect of the right thigh with a superficial fluid collection measuring 1.3 x 1 cm without subcutaneous gas seen; no findings suggestive of osteomyelitis reported. Displaced was consulted and the patient admitted to the medical surgical floor for IV antibiotic treatment which was initiated in the emergency room with IV vancomycin due to suspicion of MRSA. Dr. Wyman from surgery was consulted. Ceftriaxone was added to the regimen pending wound and blood cultures. When seen, the patient mentioned symptoms starting on Monday with folliculitis, malaise and feeling feverish without objective fever. The patient denies dizziness, headache, change in vision, nausea, vomiting, dysuria, diarrhea. Patient confirmed full CODE STATUS. Wound and tissue cultures completed as per urgent care order from 05/27/2024 resulting in findings of MRSA and normal james. Will stop ceftriaxone at this time. Review of Systems All systems reviewed & are unremarkable except as noted in HPI and below PFSH All Active Problems Discharge planning issues (Acute) On deep vein thrombosis (DVT) prophylaxis (Acute) Abscess of right thigh (Acute) Cellulitis of groin (Acute) Decreased hearing (Acute) Degenerative joint disease of knee (Acute) Osteoarthritis of right glenohumeral joint (Acute) Knee pain, bilateral (Acute) Snoring (Acute) Abnormal cholesterol test (Acute) Degenerative joint disease of right knee (Acute) DEPO MEDROL 07/25/22 Left knee DJD (Acute) DEPO MEDROL 07/25/22 Diverticulosis (Acute) S/P colonoscopy (Acute ~03/11/19) 2008- sessile serrated adenoma and hyperplastic polyp Bee sting allergy (Acute) Obesity (Chronic) Hypertension (Chronic) Medical History Screening for colon cancer Allergic rhinitis Allergy to insects and arachnids Tobacco use disorder Strain of right calf muscle Resolved - Placed at [facility] on 05/13/2022 History of colon polyps Surgical History History of surgical removal of skin lesion R under arm Family History Sister Breast cancer Hypertension Mother Diabetes Hypertension Father Hypertension Social History Smoking/Tobacco Use Status: Never Smokeless tobacco user: chewing tobacco Quit status: has quit before Second Hand Exposure: Yes Smoking risk assessment performed?: Yes Alcohol Intake: current Alcohol Intake frequency: 0-2 drinks per day Alcohol type: beer Drug use: Never Substance use type: does not use Details: last chew: 2099. 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 Pets and animals: Yes Pets and animals: cat(s) Sexually active: Yes Do you think of yourself as: straight/heterosexual Current gender identity: male What is your relationship status?: How often do you talk on the phone with friends or family?: twice per week How often do you get together with friends or relatives?: twice per week Do you belong to any clubs or organized social groups?: no Panel score (0-1 are the most socially isolated patients): 2 What type of physical activity do you participate in: walking and additional Details: stretching Duration: 30-45 minutes/day Frequency: daily Nuria/Judaism: Mandaeism Special nuria needs: No Seatbelt use: always Drive intox or ride w/intox pick up driver: No Do you feel safe at home: Yes Do you feel safe in your relationship?: Yes Meds Allergies and Home Medications Allergies Allergy/AdvReac Type Severity Reaction Status Date / Time Sulfa (Sulfonamide Allergy Unknown Skin Rash Verified 05/29/24 10:13 Antibiotics) venom-honey bee (bee venom Allergy Unknown Swelling/Ed Verified 05/29/24 10:13 (honey bee)) jad Home Medications ?Medication ?Instructions ?Recorded ?Confirmed ?Type aspirin 81 mg tablet,delayed 81 mg PO DAILY 01/08/19 05/29/24 History release (Adult Low Dose Aspirin) epinephrine 0.3 mg/0.3 mL 0.3 mg IM ONCE 01/08/19 05/29/24 History injection, auto-injector (EpiPen 2-Anibal) omega-3 fatty acids 1,000 mg 1,000 mg PO DAILY 01/08/19 05/29/24 History capsule (Fish Oil Concentrate) glucosamine-chondroitin 250 mg-200 2 tab PO DAILY 04/04/24 05/29/24 History mg tablet (Osteo Bi-Flex) hydrochlorothiazide 25 mg tablet 25 mg PO DAILY #90 tabs 04/24/24 05/29/24 Rx lisinopril 20 mg tablet 20 mg PO DAILY #90 tabs 05/14/24 05/29/24 Rx cephalexin 500 mg capsule 500 mg PO QID #40 caps 05/27/24 05/29/24 Rx doxycycline hyclate 100 mg capsule 100 mg PO BID #20 caps 05/27/24 05/29/24 Rx Exam Narrative Exam Narrative: Constitutional The patient is sitting in chair without acute distress Neuro:alert and oriented x4 . No neurological focal deficit Chest:Chest is symmetrical and normal appearance Resp:Unlabored breathing, clear lung bilaterally Cardio: regular rhythm, S1, S2, no murmur, capillary refill<3 sec., positive bilateral radial and dorsalis pedis pulses GI: Abdomen is not distended, soft and non tender, bowel sounds are present : Negative Costovertebral angle tenderness Back/spine/Pelvis: No back tenderness, normal alignment Integumentary: Lesions to right thigh and left groin are indurated draining pussy serosanguineous fluid, erythema seen around lesion, skin remains nonfriable. Extremities: strength 5/5 to bilateral lower and upper extremities Psych: RASS 0, congruent mood and normal affect. Results Labs 05/29/24 10:42 05/29/24 10:42 Labs: Laboratory Results - last 24 hr 05/29/24 10:42 WBC 9.05 RBC 4.35 L Hgb 14.1 Hct 42.1 MCV 97 H MCH 32.4 MCHC 33.5 RDW 12.2 Plt Count 351 MPV 9.5 Immature Gran % 0.3 Neutrophils % 70.4 Lymphocytes % 11.9 Monocytes % 12.5 Eosinophils % 4.5 Basophils % 0.4 Nucleated RBC % 0.0 Absolute Neutrophils 6.36 Absolute Lymphocytes 1.08 L Absolute Monocytes 1.13 H Absolute Eosinophils 0.41 Absolute Basophils 0.04 Sodium 141 Potassium 3.7 Chloride 103 Carbon Dioxide 29.6 Anion Gap 8.4 BUN 19 H Creatinine 0.9 Est GFR (CKD-EPI 2020) 96.57 Glucose 110 H Calcium 9.1 Total Bilirubin 0.63 AST 13 L ALT 23 Alkaline Phosphatase 77 Total Protein 8.0 Albumin 3.5 Last Vital Signs Temp 36.7 C 05/29/24 10:06 Pulse 90 05/29/24 10:06 Resp 16 05/29/24 10:06 BP 146/81 H 05/29/24 10:06 Pulse Ox 96 05/29/24 10:06 Time Spent Time spent with Patient: >75 minutes Time was spent: preparing to see the patient(eg.review tests), obtaining and/or reviewing separately otained hiistory, ordering medications,tests, procedures, referring, communicating with other health md do resident urgent care, indepentently interpreting results, counseling the patient and care coordination
[2024-05-29] MEDS: VANCOMYCIN 2,000 MG in Normal Saline 500 ML 333.3333 MG IVPB (14:51)
--- NOTE | 2024-05-29 16:43 | W.PC.ACHO ---
Registration Status: Primary Language: Preferred Language: ED Information & Data Chief Complaint Cellulitis 05/29/24 10:18 Triage Note Pt c/o MRSA/open sores (2) 05/29/24 10:06 in his groin area. Pt was seen at [facility] to have them lanced but states that the area is now more red, swollen, mucousy, and more painful. Pt was told that the cultures tested + for MRSA and was told to see his PCP. Pt states he can't be seen until Jun but didn't want to wait. Pt denies fever, chills, urinary s/s. Pt took 200mg ibuprofen at 0815. Pt is taking 2 abx at this time (pt unsure of names). Medical / Surgical History (Last Reviewed 04/11/24 @ 08:37 by Meghna Clark APRN) Screening for colon cancer Allergic rhinitis Allergy to insects and arachnids Tobacco use disorder Strain of right calf muscle History of colon polyps (Last Reviewed 04/11/24 @ 08:37 by Meghna Clark APRN) History of surgical removal of skin lesion Most Recent Vital Signs Temperature 37.0 C 05/29/24 16:13 Temperature Source Temporal Artery Scan 05/29/24 10:06 Pulse 70 05/29/24 16:13 Pulse Rhythm Regular 05/29/24 16:15 Pulse 71 05/29/24 15:50 Respiratory Rate 16 05/29/24 16:13 Respiratory Effort Normal 05/29/24 16:15 Respiratory Depth Normal 05/29/24 16:15 Respiratory Pattern Normal 05/29/24 16:15 Blood Pressure 116/78 05/29/24 16:13 Blood Pressure Position Sitting 05/29/24 10:06 Pulse Oximetry 96 05/29/24 16:13 Oxygen Delivery Method Room Air 05/29/24 16:13 Oxygen Flow Rate 0 05/29/24 16:13 Pain Level 4 05/29/24 16:13 Allergies Sulfa (Sulfonamide Antibiotics) Allergy (Unknown, Verified 05/29/24 10:13) Skin Rash venom-honey bee (bee venom (honey bee)) Allergy (Unknown, Verified 05/29/24 10:13) Swelling/Edema IV IV Catheter Type [Left Saline Lock Antecubital] IV Catheter Gauge [Left 18 Antecubital] Diet Orders Category Date Time Status Heart Healthy Eating [DIET] Nutrition 05/29/24 Dinner Active Diagnostics 05/29/24 Range/Units 10:42 WBC 9.05 (4.4-10.8) 10^3/uL RBC 4.35 L (4.36-5.78) 10^6/uL Hgb 14.1 (13.5-17.5) g/dL Hct 42.1 (40.0-50.0) % MCV 97 H (80-95) fL MCH 32.4 (27.0-33.0) pg MCHC 33.5 (32.0-36.0) % RDW 12.2 (11.8-14.1) % Plt Count 351 (130-400) 10^3/uL MPV 9.5 (8.0-11.0) fL Immature Gran % 0.3 % Neutrophils % 70.4 % Lymphocytes % 11.9 % Monocytes % 12.5 % Eosinophils % 4.5 % Basophils % 0.4 % Nucleated RBC % 0.0 (0.0-0.3) % Absolute Neutrophils 6.36 (1.2-6.7) 10^3/uL Absolute Lymphocytes 1.08 L (1.2-3.4) 10^3/uL Absolute Monocytes 1.13 H (0.1-0.8) 10^3/uL Absolute Eosinophils 0.41 (0.0-0.7) 10^3/uL Absolute Basophils 0.04 (0.0-0.2) 10^3/uL Sodium 141 (136-145) mmol/L Potassium 3.7 (3.5-5.1) mmol/L Chloride 103 (98-107) mmol/L Carbon Dioxide 29.6 (21.0-32.0) mmol/L Anion Gap 8.4 (3-11) mmol/L BUN 19 H (7-18) mg/dL Creatinine 0.9 (0.70-1.30) mg/dL Est GFR (CKD-EPI 2020) 96.57 (mL/min/1.73m2) Glucose 110 H (74-106) mg/dL Calcium 9.1 (8.5-10.1) mg/dL Total Bilirubin 0.63 (0.2-1.0) mg/dL AST 13 L (15-37) U/L ALT 23 (16-63) U/L Alkaline Phosphatase 77 (46-116) U/L Total Protein 8.0 (6.4-8.2) g/dL Albumin 3.5 (3.4-5.0) g/dL 05/29/24 15:47 Blood Culture - Pending Blood 05/29/24 15:40 Blood Culture - Pending Blood Intake and Output - 24 Hour Total 05/29/24 10:03 thru 05/29/24 16:15 Weight 119.5 kg Other: Urine Appearance Clear Falls Risk Assessment History of Falls No History 05/29/24 16:15 Contributing Factors No Factors 05/29/24 16:15 Ambulatory Aids Independent 05/29/24 16:15 Tubes/Lines W/no contributing factors 05/29/24 16:15 Gait Evaluation No gait disturbance 05/29/24 16:15 Cognition No cognitive impairment 05/29/24 16:15 Fall Total Score 10 05/29/24 16:15 Level of Risk Standard/Low Risk 05/29/24 16:15 Problems (Last Reviewed 04/11/24 @ 08:37 by Meghna Clark APRN) Discharge planning issues (Acute) On deep vein thrombosis (DVT) prophylaxis (Acute) Abscess of right thigh (Acute) Cellulitis of groin (Acute) Hypertension (Chronic) v v v v v v v v v Sending and/or Receiving Nurses: Please use comment section below to note any information pertinent to the patient hand-off not included above. Information / Comments: pt arrives to 206 via WC Report received from: Shaniqua JACQUES, 16:00
[2024-05-29] MEDS: cefTRIAXone 1 GM/50 ML BAG IVPB (18:11)
[2024-05-29] MEDS: HYDROmorphone 1 MG/ML SYR 0.5 MG IVP (18:29)
[2024-05-29] MEDS: Normal Saline Flush 10 ML SYR IVP (19:47)
[2024-05-30] VITALS (7 sets, daily range): BP systolic 95–112; BP diastolic 53–78; PULSE 63–77; RESP 16–18; TEMP 36.5–37.1; O2SAT 93–98
[2024-05-30 07:02] LABS: Abs Immature Grans 0.01 10^3/uL (0.0-0.06); Absolute Basophil Count 0.04 10^3/uL (0.0-0.2); Absolute Lymphocyte Count 1.18 10^3/uL (1.2-3.4); Absolute Monocyte Count 1.02 10^3/uL (0.1-0.8); Absolute Neutrophil Count 4.56 10^3/uL (1.2-6.7); Basophils % 0.5 %; Eosinophils % 6.8 %; HCT 37.9 % (40.0-50.0); Immature Grans % 0.1 %; Lymphocytes % 16.1 %; MCH 32.7 pg (27.0-33.0); MCHC 34.3 % (32.0-36.0); MCV 95 fL (80-95); MPV 9.6 fL (8.0-11.0); Neutrophils % 62.5 %; Platelet Count 363 10^3/uL (130-400); RBC 3.98 10^6/uL (4.36-5.78); RDW 12.1 % (11.8-14.1); RDW-SD 42.6 fL; WBC 7.31 10^3/uL (4.4-10.8)
[2024-05-30 07:29] LABS: Anion Gap 7.8 mmol/L (3-11); BUN 21 mg/dL (7-18); CO2 30.2 mmol/L (21.0-32.0); CREATININE 0.9 mg/dL (0.70-1.30); Chloride 102 mmol/L (98-107); Estimated GFR 96.57 (mL/min/1.73m2); Glucose 106 mg/dL (74-106); Potassium 3.7 mmol/L (3.5-5.1); Sodium 140 mmol/L (136-145)
[2024-05-30] MEDS: Glucosamine/Chondroitin CAP 1 CAP PO (07:47)
[2024-05-30] MEDS: Lisinopril 20 MG TAB PO (07:47)
[2024-05-30] MEDS: Aspirin E.C. 81 MG TABEC PO (07:47)
[2024-05-30] MEDS: Omega-3 Fatty Acids 1000 MG CAP PO (07:47)
[2024-05-30] MEDS: Polyethylene Glycol 3350 17 GM PACKET PO (07:47)
[2024-05-30] MEDS: hydroCHLOROthiazide 25 MG TAB PO (07:47)
[2024-05-30] MEDS: Docusate Sodium 100 MG CAP PO (07:47)
[2024-05-30] MEDS: Normal Saline Flush 10 ML SYR IVP ×2 (07:47→22:01)
[2024-05-30] MEDS: VANCOMYCIN/WATER (PEG) 1.25 GM/250 ML BAG IVPB ×2 (09:40→22:02)
--- NOTE | 2024-05-30 12:26 | PDOC.CMIN ---
Date of service: 05/30/24 Time of Service: 15:08 Care Management Initial Assmt Initial Assessment Reason for Hospitalization: Abscess to R medial thigh and L suprapubic area Functional Status/Living Situation Patient Presentation: Sushil was sitting up in his chair when CM met with him. He stated that he is doing well, and feels that he has improved since being admitted. Per report, he is on IV antibiotics, and blood cultures are pending, which will help determine his antibiotic course and discharge plan. Sushil stated that he lives in [place] with his , and works at [employer]. He stated that he has two adult children who live locally, and his has children as well. He asked about completing paperwork for short term disability for his work; CM explained that short term disability/FMLA paperwork should be filled out by his PCP, as they will be following the paperwork outpatient. He expressed understanding of this process. CM will continue to follow. Town of Residence: [place] Resides with: Spouse Natural Supports: Spouse, Gill Employment Status: Employed Instrumental Activities of Daily Living (ADLs): Independent Medications Medication Management: No Issues/Barriers identified Advance Directives Advance Directives: Do you have an Advance Directive: N 04/11/24 07:48 AD On File at [facility]: N 04/11/24 07:48 Date Asked 05/29/24 05/29/24 10:14 AD Date Reviewed COLST On File at [facility] COLST Date Scanned Code Status Resuscitation Status Full Code Insurance Coverage/Financial Issues Insurance: [facility] Care Team Visit Care Team Role Provider Type Meghna Clark APRN Primary Care Provider NURSE PRACTITIONER JOCELYNN Marte Emergency Provider PHYSICIANS 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 His antibiotic course is unclear at this time, which will impact his discharge plan. His will transport him via private vehicle. He will follow up with his PCP and discharge plan of care. CM will continue to follow. PFSH All Active Problems Discharge planning issues (Acute) On deep vein thrombosis (DVT) prophylaxis (Acute) Abscess of right thigh (Acute) Cellulitis of groin (Acute) Decreased hearing (Acute) Degenerative joint disease of knee (Acute) Osteoarthritis of right glenohumeral joint (Acute) Knee pain, bilateral (Acute) Snoring (Acute) Abnormal cholesterol test (Acute) Degenerative joint disease of right knee (Acute) DEPO MEDROL 07/25/22 Left knee DJD (Acute) DEPO MEDROL 07/25/22 Diverticulosis (Acute) S/P colonoscopy (Acute ~03/11/19) 2008- sessile serrated adenoma and hyperplastic polyp Bee sting allergy (Acute) Obesity (Chronic) Hypertension (Chronic) Medical History Screening for colon cancer Allergic rhinitis Allergy to insects and arachnids Tobacco use disorder Strain of right calf muscle Resolved - Placed at [facility] on 05/13/2022 History of colon polyps Surgical History History of surgical removal of skin lesion R under arm Family History Sister Breast cancer Hypertension Mother Diabetes Hypertension Father Hypertension Social History Smoking/Tobacco Use Status: Never Smokeless tobacco user: chewing tobacco Quit status: has quit before Second Hand Exposure: Yes Smoking risk assessment performed?: Yes Alcohol Intake: current Alcohol Intake frequency: 0-2 drinks per day Alcohol type: beer Drug use: Never Substance use type: does not use Details: last chew: 2099. 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 Pets and animals: Yes Pets and animals: cat(s) Sexually active: Yes Do you think of yourself as: straight/heterosexual Current gender identity: male What is your relationship status?: How often do you talk on the phone with friends or family?: twice per week How often do you get together with friends or relatives?: twice per week Do you belong to any clubs or organized social groups?: no Panel score (0-1 are the most socially isolated patients): 2 What type of physical activity do you participate in: walking and additional Details: stretching Duration: 30-45 minutes/day Frequency: daily Nuria/Spiritism: Judaism Special nuria needs: No Seatbelt use: always Drive intox or ride w/intox bus driver school: No Do you feel safe at home: Yes Do you feel safe in your relationship?: Yes SDOH(Care Management) Screening Will the Patient Participate in the Screening?: Yes Do you worry about having a steady place to live?: no Problems where you live: no known problems In the past 12 months, have you had to go without electric, gas, oil or water in your home?: no Have you or anyone in your house had to go without enough food to eat?: no Has lack of transportation kept you from medical appointments or from doing things needed for daily living?: no Has anyone in your support network made you feel unsafe for any reason?: no
[2024-05-30] MEDS: HYDROmorphone 2 MG/ML VIAL 0.5 MG IVP (12:57)
--- NOTE | 2024-05-30 19:32 | PGE_ITS ---
Date of Service Date of service: 05/30/24 Time of Service: 14:00 Assessment and Plan Assessment and plan (1) Cellulitis of groin: Status: Acute Assessment and plan: On admission, as per CT no gas collection, no cellulitis in the setting of considering Oral or gas gangrene Ongoing surgical consult: Dr Botello to take the patient to the OR s/p US in AM for I&D. Blood cultures negative x 24 hours Continue vancomycin vancomycin IV?can complete transition to oral linezolid for discharge Ongoing pharmacy consult MRSA was seen in cultures from 05/27/2024 (2) Abscess of right thigh: Status: Acute Assessment and plan: As above (3) Hypertension: Status: Chronic Assessment and plan: Patient is on home medicine regimen (4) On deep vein thrombosis (DVT) prophylaxis: Status: Acute Assessment and plan: MARCELA's (5) Discharge planning issues: Status: Acute Assessment and plan: Discharge home without services when medically stable Consider home health nursing for wound care Patient will need a letter for work Referred to care management and PCP for leave of absence for work paperwork Discussed with Dr. Powell Subjective Subjective Patient reports: feels better, tolerating liquids well, tolerating a regular diet, voiding w/o difficulty and bowel movement; denies blood in stool, nausea, vomiting, shortness of breath or fever Exam Narrative Exam Narrative: Constitutional The patient is sitting in chair without acute distress Neuro:alert and oriented x4 . Nonfocal Resp:Unlabored breathing, clear lung bilaterally Cardio: regular rhythm, S1, S2, no murmur ,positive bilateral dorsalis pedis pulses GI: Abdomen is not distended, soft and non tender, bowel sounds are present : Negative Costovertebral angle tenderness Back/spine/Pelvis: No back tenderness, normal alignment Integumentary: Lesions to right thigh and left groin are indurated draining purulent- serosanguineous fluid, erythema seen around lesion is improving , skin remains non-friable. Extremities: strength 5/5 to bilateral lower and upper extremities Psych: RASS 0, congruent mood and normal affect. Objective Last Vital Signs Temp 36.5 C 05/30/24 19:25 Pulse 74 05/30/24 19:25 Resp 18 05/30/24 19:25 BP 100/67 05/30/24 19:25 Pulse Ox 98 05/30/24 19:25 Laboratory Results - last 24 hr 12/19/24 06:34 WBC 7.31 RBC 3.98 L Hgb 13.0 L Hct 37.9 L MCV 95 MCH 32.7 MCHC 34.3 RDW 12.1 Plt Count 363 MPV 9.6 Immature Gran % 0.1 Neutrophils % 62.5 Lymphocytes % 16.1 Monocytes % 14.0 Eosinophils % 6.8 Basophils % 0.5 Nucleated RBC % 0.0 Absolute Neutrophils 4.56 Absolute Lymphocytes 1.18 L Absolute Monocytes 1.02 H Absolute Eosinophils 0.50 Absolute Basophils 0.04 Sodium 140 Potassium 3.7 Chloride 102 Carbon Dioxide 30.2 Anion Gap 7.8 BUN 21 H Creatinine 0.9 Est GFR (CKD-EPI 2020) 96.57 Glucose 106 Calcium 9.0 PAWSS Have you Been Recently Intoxicated or Drunk Within the Last 30 days?: No Have you ever Experienced Withdrawal Seizures?: No Have you ever Experienced Delirium Tremens(DT)s?: No Have you ever undergone Alcohol Rehabilitation Treatment (i.e, inpt ot outpatient treatment programs)?: No Have you ever Experienced Blackouts?: No Have you ever Combined Alcohol with other Downers within the last 90 days?: No Have you ever Combined Alcohol with any other Substance of Abuse during the last 90 days?: No Positive Blood Alcohol level on Presentation? [PCS.BAL]: No Evidence of Increased Autonomic Activity (i.e. HR>120, tremor, sweating, agitation, nausea)?: No Result: 0 Time Spent with Patient Time Spent with Patient: >50 minutes Time was spent: preparing to see the patient(eg.review tests), obtaining and/or reviewing separately otained hiistory, ordering medications,tests, procedures, referring, communicating with other health primary care nurse, indepentently interpreting results, counseling the patient and care coordination
--- NOTE | 2024-05-30 21:16 | SCONE_ITS ---
Date of service: 05/30/24 Time of Service: 21:16 Assessment and Plan Assessment and plan (1) Hypertension: Status: Chronic (2) Elevated lipids: Status: Acute (3) Obesity: Status: Chronic (4) Diverticulosis: Status: Acute (5) Cellulitis of groin: Status: Acute Assessment and plan: POCUS ultrasound was done of the right upper inner thigh. This shows that the abscess is resolved. There is still cellulitis in the soft tissues. This should resolve with antibiotics-continue vancomycin Continue supportive care DVT prophylaxis Incentive spirometry the Lactobacillus (6) Abscess of pubic region: Status: Acute Assessment and plan: The packing is out and the incision has healed up. Focus POCUS ultrasound of this region shows that there is still there is a 5 x 3 cm abscess of irregular size in this area. This needs to be opened up and drained. We will plan on doing this in the OR. This will need to be the last case of tomorrow as patient does have MRSA Will discuss with anesthesia in a.m. We could very easily use the same type of sedation we used with colonoscopy this would be a quick procedure. Risks of the procedure include but not limited to: Bleeding, infection, pneumonia, blood clots, it will leave a scar. We will need to leave the wound open to do packing and dressing changes. Will need to heal by secondary intent and take a week or 2 to heal. Risk of complications from anesthesia risks of poor cosmesis risks of developing C. difficile from the antibiotics and other on for told complications. -Patient has never had an A1c checked we will check that as well. As he is high risk for advers diabetes in light of superficial soft tissue infection. (7) MRSA (methicillin resistant Staphylococcus aureus) infection: Status: Acute History of Present Illness Narrative: Notes from express care:He reports the presence of a rash in his groin area, which he suspects may be due to an ingrown hair or a cyst. The rash has been present for approximately 1.5 weeks and has been exhibiting drainage. He also notes the development of a new lesion, which he initially thought was a pimple. He reports no involvement of the scrotal area. This is his first experience with such an infection. ED: This 61-year-old male patient with past medical history of hypertension, tobacco use disorder, hyperlipidemia presented today to the ED at an [facility] via private vehicle and ambulating with spouse with chief complaint of known abscesses treated with cephalexin and doxycycline status post lancing. Increased drainage and larger abscesses reported. Patient denied chills, body aches, nausea, weakness, dysuria. No acute tachycardia or fever on arrival to the ED noted. To the day the packing has fallen out on the abscess in the left upper inner thigh. Again ultrasound was done of this area which shows no significant abscess and only cellulitis. The I&D site has pretty much closed up the suprapubic area. Ultrasound does show a continued large abscess. Patient is not known to be diabetic. He has not had a history of MRSA before he is not on any blood thinners He is on Vanco PFSH All Active Problems MRSA (methicillin resistant Staphylococcus aureus) infection (Acute) Abscess of pubic region (Acute) left Elevated lipids (Acute) Discharge planning issues (Acute) On deep vein thrombosis (DVT) prophylaxis (Acute) Cellulitis of groin (Acute) right Decreased hearing (Acute) Degenerative joint disease of knee (Acute) Osteoarthritis of right glenohumeral joint (Acute) Knee pain, bilateral (Acute) Snoring (Acute) Abnormal cholesterol test (Acute) Degenerative joint disease of right knee (Acute) DEPO MEDROL 07/25/22 Left knee DJD (Acute) DEPO MEDROL 07/25/22 Diverticulosis (Acute) S/P colonoscopy (Acute ~03/11/19) 2008- sessile serrated adenoma and hyperplastic polyp Bee sting allergy (Acute) Obesity (Chronic) Hypertension (Chronic) Medical History Screening for colon cancer Allergic rhinitis Allergy to insects and arachnids Tobacco use disorder Strain of right calf muscle Resolved - Placed at [facility] on 05/13/2022 History of colon polyps Surgical History History of surgical removal of skin lesion R under arm Family History Sister Breast cancer Hypertension Mother Diabetes Hypertension Father Hypertension Social History Smoking/Tobacco Use Status: Never Smokeless tobacco user: chewing tobacco Quit status: has quit before Second Hand Exposure: Yes Smoking risk assessment performed?: Yes Alcohol Intake: current Alcohol Intake frequency: 0-2 drinks per day Alcohol type: beer Drug use: Never Substance use type: does not use Details: last chew: 2099. 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 Pets and animals: Yes Pets and animals: cat(s) Sexually active: Yes Do you think of yourself as: straight/heterosexual Current gender identity: male What is your relationship status?: How often do you talk on the phone with friends or family?: twice per week How often do you get together with friends or relatives?: twice per week Do you belong to any clubs or organized social groups?: no Panel score (0-1 are the most socially isolated patients): 2 What type of physical activity do you participate in: walking and additional Details: stretching Duration: 30-45 minutes/day Frequency: daily Nuria/Jew: Anglican Special nuria needs: No Seatbelt use: always Drive intox or ride w/intox 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 in no acute distress HYDRATION: Well hydrated HEAD, EYES, EARS, NECK, THROAT: Head is normocephalic, pupils equal, round, reactive to light and accommodation, ocular movement intact, sclera clear and no jaundice. ?Dentition intact. LUNGS: normal respiration/normal chest excursion. ?Clear to auscultation bilaterally. ?No wheeze. ?HEART: Regular rate and rhythm. no murmurs EXTREMITY: See ultrasound reports under impression plan ABDOMEN: soft and non-tender to palpation.? Normal bowel sounds.? Results Last Vital Signs Temp 36.5 C 05/30/24 19:25 Pulse 74 05/30/24 19:25 Resp 18 05/30/24 19:25 BP 100/67 05/30/24 19:25 Pulse Ox 98 05/30/24 19:25 Labs 05/30/24 06:34 05/30/24 06:34 Labs: Laboratory Results - last 24 hr 05/30/24 06:34 WBC 7.31 RBC 3.98 L Hgb 13.0 L Hct 37.9 L MCV 95 MCH 32.7 MCHC 34.3 RDW 12.1 Plt Count 363 MPV 9.6 Immature Gran % 0.1 Neutrophils % 62.5 Lymphocytes % 16.1 Monocytes % 14.0 Eosinophils % 6.8 Basophils % 0.5 Nucleated RBC % 0.0 Absolute Neutrophils 4.56 Absolute Lymphocytes 1.18 L Absolute Monocytes 1.02 H Absolute Eosinophils 0.50 Absolute Basophils 0.04 Sodium 140 Potassium 3.7 Chloride 102 Carbon Dioxide 30.2 Anion Gap 7.8 BUN 21 H Creatinine 0.9 Est GFR (CKD-EPI 2020) 96.57 Glucose 106 Calcium 9.0
[2024-05-30 21:34] LABS: Lab Add On Test DONE
[2024-05-30 21:50] LABS: Hemoglobin A1C 5.6 % (<5.7)
[2024-05-30] MEDS: Normal Saline 1,000 ML 75 ML IV (22:01)
[2024-05-30] MEDS: Acetaminophen 500 MG TAB 1000 MG PO (22:01)
[2024-05-31] VITALS (9 sets, daily range): BP systolic 102–134; BP diastolic 58–85; PULSE 61–83; RESP 16–18; TEMP 36.3–37; O2SAT 96–99; BMI 37.8
[2024-05-31 08:26] LABS: MRSA PCR Negative (Negative)
[2024-05-31] MEDS: Lactobacillus Acidophilus CAP 1 CAP PO ×2 (09:16→17:08)
[2024-05-31] MEDS: Glucosamine/Chondroitin CAP 1 CAP PO (09:16)
[2024-05-31] MEDS: Acetaminophen 500 MG TAB 1000 MG PO ×3 (10:49→20:46)
[2024-05-31] MEDS: VANCOMYCIN/WATER (PEG) 1.25 GM/250 ML BAG IVPB ×2 (10:49→20:45)
--- NOTE | 2024-05-31 12:13 | ANES.PREOP_ITS ---
General Info Date of Service Date Performed: 05/31/24 Height: 5 ft 10 in Weight: 119.5 kg Body Mass Index (BMI): 37.8 Surgical Procedure: Operation Date: 05/31/24 12:25 Proposed Procedure Side Surgeon p I&D of Abscess Camila Botello, DO Meds Allergies and Home Medications Allergies Allergy/AdvReac Type Severity Reaction Status Date / Time Sulfa (Sulfonamide Allergy Unknown Skin Rash Verified 05/29/24 10:13 Antibiotics) venom-honey bee (bee venom Allergy Unknown Swelling/Ed Verified 05/29/24 10:13 (honey bee)) jad Home Medication ?Medication ?Instructions ?Recorded aspirin 81 mg tablet,delayed 81 mg PO DAILY 01/08/19 release (Adult Low Dose Aspirin) epinephrine 0.3 mg/0.3 mL 0.3 mg IM ONCE 01/08/19 injection, auto-injector (EpiPen 2-Anibal) omega-3 fatty acids 1,000 mg 1,000 mg PO DAILY 01/08/19 capsule (Fish Oil Concentrate) glucosamine-chondroitin 250 mg-200 2 tab PO DAILY 04/04/24 mg tablet (Osteo Bi-Flex) hydrochlorothiazide 25 mg tablet 25 mg PO DAILY #90 tabs 04/24/24 lisinopril 20 mg tablet 20 mg PO DAILY #90 tabs 05/14/24 cephalexin 500 mg capsule 500 mg PO QID #40 caps 05/27/24 doxycycline hyclate 100 mg capsule 100 mg PO BID #20 caps 05/27/24 Current Visit Medications: Current Medications Generic Name Dose Route Start Last Admin Trade Name Freq PRN Reason Stop Dose Admin Acetaminophen 1,000 mg 05/30/24 22:00 05/31/24 10:49 Acetaminophen 500 Mg Tab PO 1,000 mg Q6H BEATRIS Administration Acidophilus/Pectin 1 cap 05/31/24 08:00 05/31/24 09:16 Lactobacillus Acidophilus Cap PO 1 cap 0800,1200,1700 BEATRIS Administration Albuterol Sulfate 2.5 mg 05/29/24 16:13 Albuterol 2.5 Mg/3 Ml Inh Soln Vial UPD Q2H PRN PRN Glucosamine/Chondroitin 1 cap 05/30/24 08:30 05/31/24 09:16 Glucosamine/Chondroitin Cap PO 1 cap DAILY BEATRIS Administration Hydromorphone HCl 0.5 mg 05/30/24 12:50 Hydromorphone 2 Mg/Ml Vial IVP Q4H PRN PRN Vancomycin/PEG/NADA/Lysine/Water 1.25 gm in 250 mls @ 166.667 mls/hr 05/30/24 22:00 05/31/24 10:49 Vancocin Injection IVPB 167 mls/hr Q12H BEATRIS Administration Sodium Chloride 1,000 mls @ 75 mls/hr 05/30/24 21:15 05/30/24 22:01 Saline 1000ml Bag IV 75 mls/hr INFUSION BEATRIS Administration IV Miscellaneous Supplies 1 each 05/29/24 16:13 Iv Access IV DIRECTED BEATRIS Lisinopril 20 mg 05/30/24 08:30 05/30/24 07:47 Lisinopril 20 Mg Tab PO 20 mg DAILY BEATRIS Administration Nicotine 14 mg 05/29/24 16:13 Nicotine 14 Mg/24 Hr Patch TD DAILY PRN PRN Polyethylene Glycol 17 gm 05/30/24 08:30 05/31/24 09:16 Polyethylene Glycol 3350 17 Gm Packet PO Not Given DAILY BEATRIS Sodium Chloride 0 ml 05/29/24 16:13 Normal Saline Flush 10 Ml Syr IVP PRN PRN Sodium Chloride 0 ml 05/29/24 20:00 05/31/24 09:16 Normal Saline Flush 10 Ml Syr IVP Not Given BID BEATRIS Sodium Chloride 0 ml 05/29/24 16:13 Normal Saline 10 Ml Vial IJ DIRECTED PRN Tramadol HCl 50 mg 05/30/24 21:22 Tramadol 50 Mg Tab PO Q4H PRN PRN PFSH Active Problems Active Problems: Problem Status Onset Code MRSA (methicillin resistant Staphylococcus aureus) infection Acute A49.02 Abscess of pubic region Acute L02.219 Elevated lipids Acute E78.5 Discharge planning issues Acute Z75.8 On deep vein thrombosis (DVT) prophylaxis Acute Z79.899 Cellulitis of groin Acute L03.314 Decreased hearing Acute H91.90 Degenerative joint disease of knee Acute M17.9 Osteoarthritis of right glenohumeral joint Acute M19.011 Knee pain, bilateral Acute M25.561, M25.562 Snoring Acute R06.83 Abnormal cholesterol test Acute E78.9 Degenerative joint disease of right knee Acute M17.11 Left knee DJD Acute M17.12 Diverticulosis Acute K57.90 S/P colonoscopy Acute ~09/30/19 Z98.890 Bee sting allergy Acute Z91.030 Obesity Chronic E66.9 Hypertension Chronic I10 Medical History Medical History Screening for colon cancer Allergic rhinitis Allergy to insects and arachnids Tobacco use disorder Strain of right calf muscle Resolved - Placed at [facility] on 05/13/2022 History of colon polyps Surgical History Surgical History History of surgical removal of skin lesion R under arm Tobacco Smoking/Tobacco Use Status: Never Smokeless tobacco user: chewing tobacco Passive smoking exposure: Yes Second hand exposure: Yes Alcohol Alcohol Intake: current Alcohol intake frequency: 0-2 drinks per day Alcohol type: beer Substance Use Substance use: Never Substance use type: does not use Details: last chew: t-2099. Alcohol: t-2, 2 beers Vital Signs and Lab Results Vital Signs Most Recent Vital Signs in EMR: Most Recent Vital Signs Temp Pulse Resp BP Pulse Ox 36.9 C 71 18 115/70 98 05/31/24 11:46 05/31/24 11:46 05/31/24 11:46 05/31/24 11:46 05/31/24 11:46 Lab Results 05/30/24 06:34 05/30/24 06:34 Blood Type / Crossmatch: 2 No Data to Display Complete Blood Count: 2 White Blood Count 7.31 10^3/uL (4.4-10.8) 05/30/24 06:34 Red Blood Count 3.98 10^6/uL (4.36-5.78) L 05/30/24 06:34 Hemoglobin 13.0 g/dL (13.5-17.5) L 05/30/24 06:34 Hematocrit 37.9 % (40.0-50.0) L 05/30/24 06:34 Platelet Count 363 10^3/uL (130-400) 05/30/24 06:34 Complete Metabolic Panel: 2 Sodium 140 mmol/L (136-145) 05/30/24 06:34 Potassium 3.7 mmol/L (3.5-5.1) 05/30/24 06:34 Chloride 102 mmol/L (98-107) 05/30/24 06:34 Carbon Dioxide 30.2 mmol/L (21.0-32.0) 05/30/24 06:34 BUN 21 mg/dL (7-18) H 05/30/24 06:34 Creatinine 0.9 mg/dL (0.70-1.30) 05/30/24 06:34 Est GFR (CKD-EPI 2020) 96.57 (mL/min/1.73m2) 05/30/24 06:34 Calcium 9.0 mg/dL (8.5-10.1) 05/30/24 06:34 Albumin 3.5 g/dL (3.4-5.0) 05/29/24 10:42 Glucose 106 mg/dL (74-106) 05/30/24 06:34 Hemoglobin A1c 5.6 % (<5.7) 05/30/24 06:34 Liver Function Panel: 2 Alanine Aminotransferase (ALT/SGPT) 23 U/L (16-63) 05/29/24 10: 42 Aspartate Amino Transf (AST/SGOT) 13 U/L (15-37) L 05/29/24 10: 42 Coagulation Panel: 2 No Data to Display Cardiac Panel: 2 No Data to Display Arterial Blood Gas: 2 No Data to Display Venous Blood Gas: 2 No Data to Display Pancreas Panel: 2 No Data to Display Thyroid Panel: 2 No Data to Display Infectious Disease: 2 No Data to Display Blood Cultures: 2 No Data to Display Toxicology Panel: 2 No Data to Display Anesthesia Assessment and Plan Anesthesia History Personal History: No History of Anesthesia Complications Family History: No Family History of Anesthesia Complications Exercise Tolerance Exercise Tolerance: Metabolic Equivalents>4 Cardiac & Pulmonary Exam Cardiac Exam: Normal S1/S2 Heart Sounds Pulmonary Exam: Clear Bilateral Breath Sounds Implantable Cardiac Device Does patient have a Pacemaker or an ICD?: No Airway Exam Known Difficult Airway: No Mallampati Class: 2 Mouth Opening: Normal (> 3cm) Thyromental Distance: Greater than 3 cm Neck Range of Motion: Limited ROM Neck Circumference: Thick Teeth Condition: Normal Dentition ASA Classification ASA Score: ASA 2 Emergency Case?: No NPO Status NPO Status: NPO Clears >2 hours, Solids >8 hours Anesthesia Plan Resuscitation Status: Full Code Anesthesia Technique: General Anesthesia Airway Planned: Natural Airway Monitors Used: Standard Monitors Preoperative Comments:: 63 yo male for I/D thigh. Sig PMHx: HTN (HCTZ, lisinopril), [place], never smoker, occ EtOH. Previous Anes: - colo, prop, natural airway, no issues. Denies GERD. Appropriately NPO. Plan for GA natural airway with ETT/LMA back up.
[2024-05-31] MEDS: Lidocaine 1% Multi-Dose W/EPI 1/100,000 50 ML VIAL (13:30)
--- NOTE | 2024-05-31 13:50 | PGE_ITS ---
Date of Service Date of service: 05/31/24 Time of Service: 13:50 Assessment and Plan Assessment and plan (1) Cellulitis of groin: Status: Acute Assessment and plan: On admission, as per CT no gas collection, no cellulitis in the setting of considering Oral or gas gangrene Ongoing surgical consult: Dr Botello to take the patient to the OR s/p US in AM for I&D. Blood cultures negative x 24 hours Continue vancomycin vancomycin IV?can complete transition to oral linezolid for discharge Ongoing pharmacy consult MRSA was seen in cultures from 05/27/2024 (2) Abscess of right thigh: Status: Resolved Assessment and plan: As above (3) Hypertension: Status: Chronic Assessment and plan: Patient is on home medicine regimen (4) On deep vein thrombosis (DVT) prophylaxis: Status: Acute Assessment and plan: MARCELA's (5) Discharge planning issues: Status: Acute Assessment and plan: Discharge home without services when medically stable Consider home health nursing for wound care Patient will need a letter for work Referred to care management and PCP for leave of absence for work paperwork Discussed with Dr. Powell Subjective Subjective Patient reports: no new complaints, feels better, pain is less (still having drainage from left side, serosang), voiding w/o difficulty and afebrile; denies shortness of breath Interval history since last seen: Has been n.p.o. for planned procedure Exam Narrative Exam Narrative: Obese male stated age no acute distress head is atraumatic Skin [place] warm dry well-perfused neurologic awake alert oriented no focal deficits Abdomen round soft nontender cardiovascular regular rate and rhythm well- perfused respirations even and unlabored Firm tender mass in the left inguinal area, firm tender mass right groin both draining serosanguineous fluid Moves all extremities no peripheral edema Objective Last Vital Signs Temp 36.9 C 05/31/24 11:46 Pulse 71 05/31/24 11:46 Resp 18 05/31/24 11:46 BP 115/70 05/31/24 11:46 Pulse Ox 98 05/31/24 11:46 Laboratory Results - last 24 hr 05/30/24 05/31/24 06:34 03:45 Hemoglobin A1c 5.6 MRSA (TEM-PCR) Negative Add-On Test Request DONE PAWSS Have you Been Recently Intoxicated or Drunk Within the Last 30 days?: No Have you ever Experienced Withdrawal Seizures?: No Have you ever Experienced Delirium Tremens(DT)s?: No Have you ever undergone Alcohol Rehabilitation Treatment (i.e, inpt ot outpatient treatment programs)?: No Have you ever Experienced Blackouts?: No Have you ever Combined Alcohol with other Downers within the last 90 days?: No Have you ever Combined Alcohol with any other Substance of Abuse during the last 90 days?: No Positive Blood Alcohol level on Presentation? [PCS.BAL]: No Evidence of Increased Autonomic Activity (i.e. HR>120, tremor, sweating, agitation, nausea)?: No Result: 0 Time Spent with Patient Time Spent with Patient: 35-49 minutes Time was spent: preparing to see the patient(eg.review tests), obtaining and/or reviewing separately otained hiistory, ordering medications,tests, procedures, referring, communicating with other health career development counselor, indepentently interpreting results and counseling the patient
--- NOTE | 2024-05-31 13:57 | CMPROGNOTE_ITS ---
Date of service: 05/31/24 Time of Service: 13:57 Care Management Progress Note Progress Note Text Progress Note Text: Sushil was sitting up in bed when CM met with him. His , Gill, was in the room visiting. Sushil stated that he had recently returned from the OR, where he had an I&D of his abscess. He stated that he is starting to feel pain, and asked if he could have tylenol; CM alerted his RN of his pain, in order for her to assess him. Sushil discussed the dressing changes that he will need post hospitalization, and he and his were concerned about doing them alone; CM discussed home health nursing, which can facilitate teaching Sushil's how to do the dressing changes. They both felt that this was a good plan. CM will continue to follow. Discharge Potential Discharge Needs: PCP F/U Appt Anticipated Barriers to Discharge: None Identified Patient/Family Education Needs: Review discharge instructions, discuss Ask Me Three Transportation: Private vehicle Plan: Anticipate Sushil will return home once medically cleared with new orders for HH RN for dressing changes. His antibiotic course is unclear at this time, which will impact his discharge plan. His will transport him via private vehicle. He will follow up with his PCP and discharge plan of care. CM will continue to follow. SDOH(Care Management) Screening Will the Patient Participate in the Screening?: Yes Do you worry about having a steady place to live?: no Problems where you live: no known problems In the past 12 months, have you had to go without electric, gas, oil or water in your home?: no Have you or anyone in your house had to go without enough food to eat?: no Has lack of transportation kept you from medical appointments or from doing things needed for daily living?: no Has anyone in your support network made you feel unsafe for any reason?: no Anticipated HH Services Anticipated HH Services at Discharge [facility] Needed, RN (dressing changes/wound care) Anticipated Date of Discharge: 06/01/24. Following Provider: Meghna Clark.
--- NOTE | 2024-05-31 14:11 | W.PM.OP ---
Operative Note Operative Note PRE-OP DIAGNOSIS: L groin abscess POST-OP DIAGNOSIS: same PROCEDURE: I&D SURGEON: Camila Botello ANESTHESIA TYPE: Local By Surgeon and General LMA/ETT Refer to Anesthesia Record ESTIMATED BLOOD LOSS: 10 PATHOLOGY: other COMPLICATIONS: None Patient was transported to: floor Patient's condition: stable Procedure Description: Patient has a left groin abscess that developed from an in-grown hair. This was drained originally on 1216 in urgent care. It was cultured and did grow out MRSA. Unfortunately the I&D has healed closed. Repeat ultrasound shows recurrent abscess. Patient is here today for repeat I&D. Informed consent is obtained explaining risks and benefits of the procedure including but not limited to: Bleeding, infection, pneumonia, blood clots, scarring and disfiguration, chronic pain or chronic numbness, need for further debridement complications of anesthesia and packing and dressing changes. Patient brought to the operative room suite and placed in the supine position. Anesthesia is administered per the department of anesthesia. Patient is prepped and draped in the usual sterile fashion using a Betadine scrub solution. Timeout is performed in accordance with institutional protocol. The the wound is identified in the left groi. 20 cc of 1% lidocaine with epinephrine are used for local anesthetization. A 15 blade is used to make a 2 cm incision over the apex of the abscess. Purulent drainage is encountered. Cultures are taken. Patient has been on antibiotics most likely but cultures will be sterile. By [employer]ING TE[employer]ER curette is used to remove all nonviable tissue and to break up pocket. Electrocautery was used to provide hemostasis. There is a small arterial bleeder at the 12 o'clock position that could not be coagulated with cautery. This is oversewn with a 4-0 Vicryl. The wound is then irrigated with a liter of saline. There is no further bleeding noted. All the nonviable tissue has been removed. The wound is packed with plain gauze and sterile dressings are applied. Patient tolerated procedure well without complication and transferred to cover room in stable condition. Family is prior to findings. Patient will need to undergo daily dressing changes. Date of Procedure: 05/31/24
--- NOTE | 2024-05-31 14:12 | W.BRIEF ---
Date of service: 05/31/24 Time of Service: 14:12 Brief Operative Note Procedure/Pre & Post Op Diagnoses/Group Home Counselor: Operation Date: 05/31/24 12:25 Actual Procedures p I&D of Suprapubic Abscess - Camila Botello DO Pre-Op Diagnosis: SUPRAPUBIC ABSCESS Post-Op Diagnosis: SUPRAPUBIC ABSCESS Anesthesia Anesthesia Type: Local By Surgeon and General:No Airway Specimen/Culture Culture(s): ANAEROBIC AND AEROBIC CULTURES SENT TO LAB Complications Complications: None
--- NOTE | 2024-05-31 14:32 | W.ANESPOSTOP ---
Postoperative Evaluation Date, Time and Location Date Performed: 05/31/24 Time Performed: 14:01 Patient Location: Med/Surg Vital Signs Most Recent Imported Vital Signs: Most Recent Vital Signs Temp Pulse Resp BP Pulse Ox 36.4 C L 62 18 120/80 97 05/31/24 14:29 05/31/24 14:29 05/31/24 14:29 05/31/24 14:29 05/31/24 14:29 Pain Score Most Recent Pain Score: Most Recent Pain Score Pain Level [Genital] 2 05/30/24 21:00 Pain Level 0 05/31/24 11:49 Assessment Mental Status: Awake (Alert & Oriented to Patient Baseline) Airway and Respiratory Function: Patent airway with normal (patient baseline) respiratory exam Cardiovascular Function: Hemodynamically Stable Hydration Status: Adequately Hydrated Nausea & Vomiting: No Nausea or Vomiting Pain: Pain is tolerable per patient Peripheral Nerve Block: Patient did not receive a nerve block
[2024-05-31] MEDS: traMADol 50 MG TAB PO ×2 (15:43→20:45)
[2024-05-31] MEDS: Normal Saline Flush 10 ML SYR IVP (20:45)
--- NOTE | 2024-05-31 23:02 | W.PM.PROGNOT ---
Date of Service Date of service: 05/31/24 Time of Service: 23:02 Assessment and Plan Assessment and plan (1) H/O drainage of abscess: Assessment and plan: The patient is doing well post-op. Their pain is well controlled. They are having no nausea or vomiting. The pt is not having any chest pain or SOB, productive cough; no calf pain or swelling. The pt is making good urine. The pt pain is adequately controlled. The case was discussed with nursing and patient?s progress reviewed. All of the pt's home medications were addressed and adjusted accordingly for their oral intact status. disCussed findings at time of surgery Discussed wound care at home. Patient would really like to go home tomorrow Discussed home antibiotics. And postop activity HEENT: no jaundice. no eye pain/drainage/redness/swelling. Mild sore throat Cardio- NSR no chest pain, BP stable. Pulm: no sob or productive cough. no hemoptysis Incision- clean/dry. Dressing intact no excessive bleeding or drainage I discussed with the patient and/or there family about the findings in surgery and the pt's progress. We reviewed expectations for progress in the hospital; what the pt could expect for recovery time and length of stay. We discussed the importance of walking and pulmonary toilet to avoid blood clots and pneumonia. Continue current plans for pulmonary toilet, GI and DVT prophylaxis. We shall continue the current plan for pain management as it is at an appropriate level, and working well for the pt. Appropriate measures will be taken for constipation prevention, and this was also reviewed with the pt. The wound care plan was reviewed with nursing as well. see orders (2) Hypertension: Status: Chronic (3) Elevated lipids: Status: Acute (4) Obesity: Status: Chronic (5) MRSA (methicillin resistant Staphylococcus aureus) infection: Status: Acute (6) Cellulitis of groin: Status: Acute (7) Abscess of pubic region: Status: Acute (8) Tobacco use disorder: Objective Last Vital Signs Temp 36.8 C 05/31/24 22:34 Pulse 64 05/31/24 22:34 Resp 18 05/31/24 22:34 BP 120/77 05/31/24 22:34 Pulse Ox 97 05/31/24 22:34 Laboratory Results - last 24 hr 05/31/24 05/31/24 03:45 21:20 Vancomycin Trough Cancelled MRSA (TEM-PCR) Negative PAWSS Have you Been Recently Intoxicated or Drunk Within the Last 30 days?: No Have you ever Experienced Withdrawal Seizures?: No Have you ever Experienced Delirium Tremens(DT)s?: No Have you ever undergone Alcohol Rehabilitation Treatment (i.e, inpt ot outpatient treatment programs)?: No Have you ever Experienced Blackouts?: No Have you ever Combined Alcohol with other Downers within the last 90 days?: No Have you ever Combined Alcohol with any other Substance of Abuse during the last 90 days?: No Positive Blood Alcohol level on Presentation? [PCS.BAL]: No Evidence of Increased Autonomic Activity (i.e. HR>120, tremor, sweating, agitation, nausea)?: No Result: 0 Time Spent with Patient Time Spent with Patient: <25 minutes Time was spent: preparing to see the patient(eg.review tests), obtaining and/or reviewing separately otained hiistory, ordering medications,tests, procedures, referring, communicating with other health wound care specialist, indepentently interpreting results, counseling the patient, care coordination and other
[2024-06-01 03:26] VITALS: BP 110/66; PULSE 58; RESP 18; TEMP 36.4; O2SAT 97
[2024-06-01] MEDS: Acetaminophen 500 MG TAB 1000 MG PO ×2 (06:04→11:22)
[2024-06-01 07:10] LABS: Vancomycin, Trough 13.6 ug/mL (10.0-20.0)
[2024-06-01 07:40] VITALS: BP 120/73; PULSE 61; RESP 18; TEMP 36.7; O2SAT 99
--- NOTE | 2024-06-01 11:08 | DSE_ITS ---
Date of service: 06/01/24 Time of Service: 11:08 DS: Diagnosis Discharge Diagnosis (1) Cellulitis of groin: Status: Acute (2) Abscess of right thigh: Status: Resolved (3) Hypertension: Status: Chronic Discharge Plan Disposition Patient Disposition: Home W/Home Health Services Condition: Improving Discharge Details Reason For Visit: Abscesses to R medial thigh and L suprapubic areas Admit Date/Time: 05/29/24 14:48 Admit Provider: Heriberto Powell Attending Provider: Heriberto Powell Primary Care Provider: Meghna Clark Hospital Course Hospital Course: This is a 63-year-old male patient past medical history significant for hyp ertension obesity dyslipidemia presented to the emergency department with pain and swelling in his left suprapubic and right groin/medial upper thigh area. He was started on antibiotics and admitted to hospitalist services. Surgery was consulted for I&D. He was placed on vancomycin. He did return back to the OR for additional I&D. Original wound cultures had grown MRSA. Hemodynamically he has been stable eating and drinking bowels and bladder functioning. He is being discharged to home with new home health services who will assist with wound monitoring and educated on dressing changes. He will be discharged on linezolid and will follow-up outpatient with surgery. discharge discussed with Dr Greenwood [facility] and New Rx's Prescriptions: New linezolid 600 mg tablet 600 mg PO BID Qty: 20 0RF Continued aspirin [Adult Low Dose Aspirin] 81 mg tablet,delayed release (DR/EC) 81 mg PO DAILY epinephrine [EpiPen 2-Anibal] 0.3 mg/0.3 mL auto-injector 0.3 mg IM ONCE omega-3 fatty acids [Fish Oil Concentrate] 1,000 mg capsule 1,000 mg PO DAILY glucosamine-chondroitin [Osteo Bi-Flex] 250-200 mg tablet 2 tab PO DAILY Rx Instructions: give after food/meal hydrochlorothiazide 25 mg tablet 25 mg PO DAILY Qty: 90 3RF lisinopril 20 mg tablet 20 mg PO DAILY Qty: 90 3RF Discontinued cephalexin 500 mg capsule 500 mg PO QID Qty: 40 0RF doxycycline hyclate 100 mg capsule 100 mg PO BID Qty: 20 0RF Discharge Instructions Instructions: Abscess Incision and Drainage Additional Instructions: daily wound care: -get in shower and wash and get packing wet, remove packing -wash wound and rinse thoroughly -pack lightly w/ plain packing -pat dry -protect w/ gauze packing Stand Alone Forms: Nursing Discharge Form Referrals: Meghna Clark APRN [Primary Care Provider] - (Please call the office on Monday to make a follow-up appointment for within 1 to 2 weeks.) Activity:: Activity as Tolerated Equipment/Supplies:: No Equipment Needed Diet:: As Tolerated Discharge Orders Discharge Orders: Discharge Order (Routine); Ordered 06/01/24 Ordered By: Ana Maria Lopez Discharge Data Discharge Date/Time-TO BE ENTERED AT DEPARTURE: 06/01/24 14:20 DS: Summary Time Spent with Patient providing and/or coordinating discharge services: Greater than 30 minutes Status at Discharge Functional status at discharge: independent ambulation Overall status at discharge: patient is back to baseline Mental Status: mental status grossly normal Speech and Movement: speech and movement normal Mood: congruent mood Affect: normal affect Quality:SDOH Health Related Social Needs: No Data to Display Exam Narrative Exam Narrative: Obese male stated age no acute distress head is atraumatic Skin [place]rober[place] warm dry well-perfused neurologic awake alert oriented no focal deficits Abdomen round soft nontender cardiovascular regular rate and rhythm well- perfused respirations even and unlabored post operative dressing intact. Moves all extremities no peripheral edema Psych Mental Status: mental status grossly normal Speech and Movement: speech and movement normal Mood: congruent mood Affect: normal affect DS: Data Vitals/I&O Vitals and I&O: Vital Signs Temperature 36.7 C 06/01/24 07:40 Temperature Source Tympanic 06/01/24 07:40 Pulse 61 06/01/24 07:40 Pulse Rhythm Regular 05/29/24 16:15 Pulse 71 05/29/24 15:50 Respiratory Rate 18 06/01/24 07:40 Respiratory Effort Normal 05/29/24 16:15 Respiratory Depth Normal 05/29/24 16:15 Respiratory Pattern Normal 05/29/24 16:15 Blood Pressure 120/73 06/01/24 07:40 Blood Pressure Position Sitting 05/29/24 10:06 Pulse Oximetry 99 06/01/24 07:40 Oxygen Delivery Method Room Air 06/01/24 07:40 Oxygen Flow Rate 0 06/01/24 07:40 Pain Level 3 06/01/24 06:04 Comment BP recheck - RN informed 05/30/24 16:28 Intake & Output 05/31/24 05/31/24 06/01/24 11:59 23:59 11:59 Intake Total 1060 / 1680 620 / 1680 Output Total 600 / 1200 600 / 1200 Balance 460 / 480 20 / 480 Weight 119.5 kg Intake: IV 1000 / 1500 500 / 1500 Oral 60 / 180 120 / 180 Output: Urine 600 / 1200 600 / 1200 Other: Urine Color Light Meghan Yellow Urine Appearance Clear Clear Urine Odor None None Stool Size Moderate Stool Characteristics Soft Formed Data Completed and Pending Labs on day of discharge: Labs from last 24 hours 06/01/24 05/31/24 06:12 21:20 Vancomycin Trough 13.6 Cancelled 05/31/24 13:32 Abdomen Anaerobic Culture - Pending Preliminary micro results at discharge 05/31/24 13:32 Abscess Culture - Preliminary Abdomen Staph aureus, MRSA 05/29/24 15:47 Blood Culture - Preliminary Blood NO GROWTH 48 HOURS 05/29/24 15:40 Blood Culture - Preliminary Blood NO GROWTH 48 HOURS 05/31/24 13:32 Anaerobic Culture - Pending Abdomen PFSH All Active Problems MRSA (methicillin resistant Staphylococcus aureus) infection (Acute) Abscess of pubic region (Acute) left Elevated lipids (Acute) Discharge planning issues (Acute) On deep vein thrombosis (DVT) prophylaxis (Acute) Cellulitis of groin (Acute) right Decreased hearing (Acute) Degenerative joint disease of knee (Acute) Osteoarthritis of right glenohumeral joint (Acute) Knee pain, bilateral (Acute) Snoring (Acute) Abnormal cholesterol test (Acute) Degenerative joint disease of right knee (Acute) DEPO MEDROL 07/25/22 Left knee DJD (Acute) DEPO MEDROL 07/25/22 Diverticulosis (Acute) S/P colonoscopy (Acute ~03/11/19) 2008- sessile serrated adenoma and hyperplastic polyp Bee sting allergy (Acute) Obesity (Chronic) Hypertension (Chronic) Medical History Screening for colon cancer Allergic rhinitis Allergy to insects and arachnids Tobacco use disorder Strain of right calf muscle Resolved - Placed at [facility] on 05/13/2022 History of colon polyps Surgical History History of surgical removal of skin lesion R under arm Family History Sister Breast cancer Hypertension Mother Diabetes Hypertension Father Hypertension Social History Smoking/Tobacco Use Status: Never Smokeless tobacco user: chewing tobacco Quit status: has quit before Second Hand Exposure: Yes Smoking risk assessment performed?: Yes Alcohol Intake: current Alcohol Intake frequency: 0-2 drinks per day Alcohol type: beer Drug use: Never Substance use type: does not use Details: last chew: [id number]. 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 Pets and animals: Yes Pets and animals: cat(s) Sexually active: Yes Do you think of yourself as: straight/heterosexual Current gender identity: male What is your relationship status?: How often do you talk on the phone with friends or family?: twice per week How often do you get together with friends or relatives?: twice per week Do you belong to any clubs or organized social groups?: no Panel score (0-1 are the most socially isolated patients): 2 What type of physical activity do you participate in: walking and additional Details: stretching Duration: 30-45 minutes/day Frequency: daily Nuria/Quaker: Confucianism Special nuria needs: No Seatbelt use: always Drive intox or ride w/intox horse and wagon driver: No Do you feel safe at home: Yes Do you feel safe in your relationship?: Yes Time Spent with Patient Time Spent with Patient: 45-69 minutes Time was spent: preparing to see the patient(eg.review tests), obtaining and/or reviewing separately otained hiistory, ordering medications,tests, procedures, indepentently interpreting results and counseling the patient
[2024-06-01] MEDS: VANCOMYCIN/WATER (PEG) 1.5 GM/300 ML BAG IVPB (11:14)
[2024-06-01] MEDS: Glucosamine/Chondroitin CAP 1 CAP PO (11:22)
[2024-06-01] MEDS: Lactobacillus Acidophilus CAP 1 CAP PO ×2 (11:22→14:00)
[2024-06-01] MEDS: Normal Saline Flush 10 ML SYR IVP (11:24)
[2024-06-01 11:28] VITALS: BP 115/72; PULSE 69; RESP 18; TEMP 36.7; O2SAT 97
--- NOTE | 2024-06-01 16:03 | PDOC.HHF2F_ITS ---
Home Health Referral Home Health Orders Clinical synopsis of why skilled professionals are needed: wound care, assessment and dressing teaching Medical diagnosis necessitation home health referral: abscess s/p incision and drainage Registered Nurse: Check all that apply Instruct on new or changed medication(s)/assess compliance: Ordered Assess for exacerbation of medical condition, instruct patient/caregivers on signs and symptoms to report for early detection: Ordered Assess wound for signs and symptoms of infection, instruct on wound care and/or provide skilled wound care consisting of: -get in shower and wash and get packing wet, remove packing -wash wound and rinse thoroughly -pack lightly w/ plain packing -pat dry -protect w/ gauze packing Encounter Date and Reason: I certify that a FTF encounter for this patient was performed on June 01, 2024 and that such encounter was related to the primary reason the patient requires home health services. The encounter was conducted in the following manner: * By me as the certifying physician, FOUNDER CEO & PRESIDENT, PA or * By an inpatient physician, FOUNDER CEO & PRESIDENT or PA during an inpatient stay who communicated findings to me, Certification And Authentication I certify that I composed the above information based on my clinical judgment relating to this patient's medical condition and, if applicable, clinical findings communicated to me by the NPP or inpatient physician who performed the FTF encounter. Name of Provider that will be monitoring home health services: Meghna Clark
--- NOTE | 2024-06-01 16:17 | PDOC.CMDIS ---
Date of service: 06/01/24 Time of Service: 15:00 LACE Index Scoring Tool Questions: Length of Stay (in days): 3 Was the patient admitted via the E.D.?: Yes E.D. Visits: 1 Answers: Total Score: 7 Risk of Readmission: Low Risk Care Management Discharge Plan Reason for Hospitalization: cellulitis of groin, I and D of abscesses to R medial thigh and L suprapubic areas Discharge Plan: Sushil was discharged home with new orders for HH RN and for continued antibiotics. He and his were taught, today, how to change the dressing and were given supplies by his RN. It is felt that HH RN should come in and assess the wound and how well Sushil is changing his dressing. Sushil will f/u with his PCP for evaluation of the wound, and continue per his prescribed plan of care. He was driven home by his Patient/Family Education Needs: Review of discharge instructions, including dressing changes, activity, limitations, f/u plan and ask me 3 Services Needed at Discharge: Home Health Care Services (RN for wound care) SDTN Health Related Social Needs: No Data to Display
== END 2024-06-01 14:20 | disposition home health service (06) | DRG 603 ==
LOC: ER 14:40 → MS 16:10
PROVIDERS: Family Medicine; Nurse Practitioner Acute Care; Surgery; Admitting Provider Hospitalist; Emergency Provider Physician Assistant; PCP Nurse Practitioner Family; Visit Provider Hospitalist
PROC: 0H9AXZZ Drainage of Inguinal Skin, External Approach (ICD-10-PCS; CPT 10060; principal; 2024-05-31 12:15)
DX: L02.214 Cutaneous abscess of groin (principal); L02.415 Cutaneous abscess of right lower limb; L03.314 Cellulitis of groin; I10 Essential (primary) hypertension; B95.62 Methicillin resistant Staphylococcus aureus infection as the cause of diseases classified elsewhere; Z79.899 Other long term (current) drug therapy; E78.5 Hyperlipidemia, unspecified; E66.9 Obesity, unspecified; Z68.37 Body mass index [BMI] 37.0-37.9, adult; K57.30 Diverticulosis of large intestine without perforation or abscess without bleeding; M17.12 Unilateral primary osteoarthritis, left knee; Z86.0101 Personal history of adenomatous and serrated colon polyps; F17.220 Nicotine dependence, chewing tobacco, uncomplicated
CPT/HCPCS: 10060; 00123; 36415; 80048; 80053; 87040; 87077; 87641; 96365; 99285; 73701; 80202; 83036; 85025; 87070; 87075; 87186; 87205; 99223; 99232; 99233; 99239; J0696; J1171; J2003; J2004; J2250; J2704; J3370; J3372; J3490

== ENCOUNTER 2024-06-29 12:48 | Emergency (ER) | payer OTHER, SELFPAY ==
[2024-06-29 12:50] VITALS: BP 155/84; PULSE 88; RESP 18; TEMP 36.6; O2SAT 95
--- NOTE | 2024-06-29 13:02 | W.ED.GENAD ---
Discharge Plan Disposition Patient Disposition: Home Condition: Stable Discharge Details Clinical Impression: Cellulitis, face Primary Care Provider: Meghna Clark ED Provider: Martínez Fleming Home Meds and New Rx's Prescriptions: New ciprofloxacin HCl 500 mg tablet 500 mg PO BID Qty: 14 0RF amoxicillin-pot clavulanate 875-125 mg tablet 1 tab PO BID Qty: 14 0RF Continued aspirin [Adult Low Dose Aspirin] 81 mg tablet,delayed release (DR/EC) 81 mg PO DAILY epinephrine [EpiPen 2-Anibal] 0.3 mg/0.3 mL auto-injector 0.3 mg IM ONCE omega-3 fatty acids [Fish Oil Concentrate] 1,000 mg capsule 1,000 mg PO DAILY glucosamine-chondroitin [Osteo Bi-Flex] 250-200 mg tablet 2 tab PO DAILY Rx Instructions: give after food/meal hydrochlorothiazide 25 mg tablet 25 mg PO DAILY Qty: 90 3RF lisinopril 20 mg tablet 20 mg PO DAILY Qty: 90 3RF Discharge Instructions Additional Instructions: You are being treated for skin infection. If not improving this week follow-up with your primary care provider If you feel more ill, have high fevers or severe worsening pain return to the emergency department for reevaluation HPI General Mode of arrival: ambulatory. Date/Time Provider Initiated Documentation: 06/29/24 12:49. Limitations to Documentation: no limitations. Information obtained by: patient. History of Present Illness 63 year old M presents to the emergency department with the chief complaint of left face swelling/redness, described as moderate, Quality is described as aching, and is localized to the face. Patient reports no radiation. Patient started experiencing this day(s) (1) and it has been constant. No relieving factors improve symptom(s), No exacerbating factors reported . Patient notes no other symptoms.. Patient did receive the following treatments prior to arrival, none Related Data Home Medications ?Medication ?Instructions ?Recorded ?Confirmed aspirin 81 mg tablet,delayed 81 mg PO DAILY 01/08/19 06/28/24 release (Adult Low Dose Aspirin) epinephrine 0.3 mg/0.3 mL 0.3 mg IM ONCE 01/08/19 06/28/24 injection, auto-injector (EpiPen 2-Anibal) omega-3 fatty acids 1,000 mg 1,000 mg PO DAILY 01/08/19 06/28/24 capsule (Fish Oil Concentrate) glucosamine-chondroitin 250 mg-200 2 tab PO DAILY 04/04/24 06/28/24 mg tablet (Osteo Bi-Flex) hydrochlorothiazide 25 mg tablet 25 mg PO DAILY #90 tabs 04/24/24 06/28/24 lisinopril 20 mg tablet 20 mg PO DAILY #90 tabs 05/14/24 06/28/24 amoxicillin 875 mg-potassium 1 tab PO BID #14 tabs 06/29/24 clavulanate 125 mg tablet ciprofloxacin HCl 500 mg tablet 500 mg PO BID #14 tabs 06/29/24 Previous Rx's ?Medication ?Instructions ?Recorded hydrochlorothiazide 25 mg tablet 25 mg PO DAILY #90 tabs 04/24/24 lisinopril 20 mg tablet 20 mg PO DAILY #90 tabs 05/14/24 amoxicillin 875 mg-potassium 1 tab PO BID #14 tabs 06/29/24 clavulanate 125 mg tablet ciprofloxacin HCl 500 mg tablet 500 mg PO BID #14 tabs 06/29/24 Allergies Allergy/AdvReac Type Severity Reaction Status Date / Time Sulfa (Sulfonamide Allergy Unknown Skin Rash Verified 06/29/24 13:07 Antibiotics) venom-honey bee (bee venom Allergy Unknown Swelling/Ed Verified 06/29/24 13:07 (honey bee)) jad General Stated Complaint: DentalOral VERONA: 4 Review of Systems All systems reviewed & are unremarkable except as noted in HPI and below Constitutional Constitutional: Denies chills, Denies fever(s) and Denies weakness Cardiovascular Cardiovascular: Denies chest pain and Denies dyspnea Respiratory Respiratory: Denies cough and Denies dyspnea Gastrointestinal Gastrointestinal: Denies abdominal pain, Denies nausea and Denies vomiting Integumentary/Breasts Skin/Breast: Reports rash Neurologic Neurologic: Denies weakness Exam Const General: no acute distress Orientation: alert HENMT Ears: external ears normal General nose exam: external nose normal Mouth: moist mucous membranes Eyes General: appearance normal, both eyes and all related structures Neck Neck: normal visual inspection Resp Effort & Inspection: normal respiratory effort and able to speak in complete sentences Cardio Rate: regular rate Skin General skin exam: no rashes or lesions noted Neuro General: patient alert and patient oriented x3 Extrem General: normal to inspection Psych Mental Status: mental status grossly normal Course Vital Signs Vital signs: Vital Signs Temperature 36.6 C 06/29/24 12:50 Pulse 88 06/29/24 12:50 Respiratory Rate 18 06/29/24 12:50 Blood Pressure 155/84 H 06/29/24 12:50 Pulse Oximetry 95 06/29/24 12:50 Temperature 36.6 C 06/29/24 12:50 Pulse 88 06/29/24 12:50 Respiratory Rate 18 06/29/24 12:50 Blood Pressure 155/84 H 06/29/24 12:50 Blood Pressure Position Sitting 06/29/24 12:50 Pulse Oximetry 95 06/29/24 12:50 Oxygen Delivery Method Room Air 06/29/24 12:50 Oxygen Flow Rate 0 06/29/24 12:50 Medical Decision Making 63-year-old male who recently had MRSA of his right thigh area no longer on antibiotics comes in with 1 day of left facial redness and swelling. He denies any fevers or severe pain. He is well-appearing on exam speaking in full sentences, no stridor or drooling. His left lower lip is mildly swollen compared to the rest of his lips and he has erythema approximately 3 cm on the skin around this. There is no fluctuance. There is no drainage. His posterior pharynx is normal with a midline uvula. There is no swelling over his cheek., No submandibular swelling, no pain over the hyoid or restricted neck movements. His teeth are not bothering him and he has no evidence of periapical abscess. I suspect a facial cellulitis. No fevers and his well appearance I doubt sepsis and do not feel any labs or imaging are indicated. There is no abscess on exam. His MRSA was susceptible to Cipro so we will start this and also cover for strep with Augmentin. He is stable for discharge and advised to follow-up with his PCP if not improving and return precautions given Differential Diagnosis Differential Diagnosis: Cellulitis, MRSA Medical Records Medical records reviewed: Yes I reviewed the patient's medical records. Quality:SDOH Health Related Social Needs: No Data to Display PFSH All Active Problems (Updated 06/29/24 @ 13:07 by Martínez Fleming MD) Cellulitis, face (Acute) MRSA (methicillin resistant Staphylococcus aureus) infection (Acute) Abscess of pubic region (Acute) left Elevated lipids (Acute) Cellulitis of groin (Acute) right Decreased hearing (Acute) Degenerative joint disease of knee (Acute) Osteoarthritis of right glenohumeral joint (Acute) Knee pain, bilateral (Acute) Snoring (Acute) Abnormal cholesterol test (Acute) Degenerative joint disease of right knee (Acute) DEPO MEDROL 07/25/22 Left knee DJD (Acute) DEPO MEDROL 07/25/22 Diverticulosis (Acute) S/P colonoscopy (Acute ~03/11/19) 2009- sessile serrated adenoma and hyperplastic polyp Bee sting allergy (Acute) Obesity (Chronic) Hypertension (Chronic) Medical History (Updated 06/29/24 @ 13:07 by Martínez Fleming MD) Screening for colon cancer Allergic rhinitis Allergy to insects and arachnids Tobacco use disorder Strain of right calf muscle Resolved - Placed at [facility] on 05/13/2022 History of colon polyps Surgical History (Updated 06/10/24 @ 11:08 by Camila Botello DO) H/O drainage of abscess Left suprapubic region History of surgical removal of skin lesion R under arm Family History Sister Breast cancer Hypertension Mother Diabetes Hypertension Father Hypertension Social History Smoking/Tobacco Use Status: Never Smokeless tobacco user: chewing tobacco Quit status: has quit before Second Hand Exposure: Yes Smoking risk assessment performed?: Yes Alcohol Intake: current Alcohol Intake frequency: 0-2 drinks per day Alcohol type: beer Drug use: Never Substance use type: does not use Details: last chew: 2099. 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 Pets and animals: Yes Pets and animals: cat(s) Sexually active: Yes Do you think of yourself as: straight/heterosexual Current gender identity: male What is your relationship status?: How often do you talk on the phone with friends or family?: twice per week How often do you get together with friends or relatives?: twice per week Do you belong to any clubs or organized social groups?: no Panel score (0-1 are the most socially isolated patients): 2 What type of physical activity do you participate in: walking and additional Details: stretching Duration: 30-45 minutes/day Frequency: daily Nuira/Orthodoxy: Quaker Special nuria needs: No Seatbelt use: always Drive intox or ride w/intox lease purchase truck driver: No Do you feel safe at home: Yes Do you feel safe in your relationship?: Yes
[2024-06-29 13:03] VITALS: BP 155/84; PULSE 88; RESP 18; TEMP 36.6; O2SAT 95
[2024-06-29] MEDS: Amoxicillin 875/Clav. 125 TAB PO (13:10)
[2024-06-29] MEDS: Ciprofloxacin 500 MG TAB PO (13:10)
[2024-06-29 14:56] VITALS: BP 148/72; PULSE 78; RESP 18; O2SAT 95
== END 2024-06-29 14:56 | disposition home or self-care (01) ==
PROVIDERS: Emergency Provider Emergency Medicine; PCP Nurse Practitioner Family
DX: L03.211 Cellulitis of face (principal); I10 Essential (primary) hypertension; F17.220 Nicotine dependence, chewing tobacco, uncomplicated; Z79.82 Long term (current) use of aspirin; Z86.14 Personal history of Methicillin resistant Staphylococcus aureus infection
CPT/HCPCS: 99283

== ENCOUNTER 2024-07-04 14:13 | Emergency (ER) | payer OTHER, SELFPAY ==
[2024-07-04 14:35] VITALS: BP 142/91; PULSE 79; RESP 16; TEMP 37.3; O2SAT 95
--- NOTE | 2024-07-04 15:14 | W.ED.GENAD ---
Discharge Plan Disposition Patient Disposition: Home Condition: Stable Discharge Details Clinical Impression: Cellulitis, face, MRSA (methicillin resistant Staphylococcus aureus) infection, Cellulitis of groin, Hypertension Primary Care Provider: Meghna Clark ED Provider: Elizabet Conroy Home Meds and New Rx's Prescriptions: New amoxicillin-pot clavulanate 875-125 mg tablet 1 tab PO BID 7 Days Qty: 14 0RF ciprofloxacin HCl [Cipro] 500 mg tablet 500 mg PO Q12H 7 Days Qty: 14 0RF No Action aspirin [Adult Low Dose Aspirin] 81 mg tablet,delayed release (DR/EC) 81 mg PO DAILY epinephrine [EpiPen 2-Anibal] 0.3 mg/0.3 mL auto-injector 0.3 mg IM ONCE omega-3 fatty acids [Fish Oil Concentrate] 1,000 mg capsule 1,000 mg PO DAILY glucosamine-chondroitin [Osteo Bi-Flex] 250-200 mg tablet 2 tab PO DAILY Rx Instructions: give after food/meal hydrochlorothiazide 25 mg tablet 25 mg PO DAILY Qty: 90 3RF lisinopril 20 mg tablet 20 mg PO DAILY Qty: 90 3RF ciprofloxacin HCl 500 mg tablet 500 mg PO BID Qty: 14 0RF amoxicillin-pot clavulanate 875-125 mg tablet 1 tab PO BID Qty: 14 0RF Discharge Instructions Instructions: Cellulitis (Skin Infection), Adult ED Additional Instructions: You were seen in the emergency department today for reevaluation of your lip infection, condition known as cellulitis. In our department you have a full physical examination performed, and the area of cellulitis seems to be slowly improving, that you do need to take the antibiotics for a longer period of time. We did discuss the different antibiotic options and at this time we will keep you on the same ones that you are currently taking. I have sent a new prescription to your pharmacy so that you have enough antibiotics to take for a total of 14 days, including the 6 days you have already taken. You need to call your primary care provider and schedule an appointment for reevaluation to ensure that you do not require changing of your antibiotics or an extended prescription. You can return to the emergency department if you develop fever, chills, inability to eat or drink, worsening of your infections, or any other symptoms that cause you concern. Thank you for allowing us to be part of your care. Stand Alone Forms: Work Release HPI General Mode of arrival: ambulatory. Date/Time Provider Initiated Documentation: 07/04/24 14:18. Limitations to Documentation: no limitations. Information obtained by: patient, family and old records reviewed. HPI Narrative: HPI: This is a 63-year-old male patient with a past medical history significant for MRSA, hypertension, and a recent ER visit for a lip infection, presenting for reevaluation of his lip infection. The patient reports that he has been taking his 2 antibiotics as prescribed, states that he has not noted that the swelling has improved as much as he expected. He does state that the pain that was present extending up into his cheek 5 days ago has entirely resolved. He has not had any fevers or chills, has been able to eat and drink though he does prefer liquids given the swelling in his lip. He states that he recently noted a new lesion in his groin, has a history of MRSA and frequent abscesses, cellulitis's, and folliculitis's. The patient reports that he scheduled a visit with his primary care for early July, states that he presented today because he is going to run out of medications after tomorrow and is concerned that he still has an ongoing infection. This is an isolated complaint and the patient is otherwise in his normal state of health. Exam: Gen: Awake and alert, in no apparent distress HEENT: Non-icteric sclera, EOMs full without entrapment. The patient has induration, redness, and swelling of the left lower lip down into the chin, an area approximately 3 cm in diameter. There is no fluctuance, does have an overlying crust/scab, no purulent drainage appreciated. Compared to pictures of the facial infection shown to me by the patient's family, the area seems stable to slightly improved compared to priors. Dentition is at baseline with no evidence of apical abscess Neck: Supple, full range of motion Lungs: No apparent respiratory distress, normal respiratory effort. Lung sounds clear CV: Appears well perfused, heart with regular rate and rhythm, strong distal pulses Abdomen: Non-distended : Normal external male genitalia, 1 cm area of redness and induration to the left inguinal crease without fluctuance appreciated, numerous scarring noted from prior abscesses. MSK: Moves 4 extremities without apparent limitation in ROM Skin: Visualized skin without rashes, cyanosis. Neuro: Normal Gait, no obvious focal deficits or facial asymmetry. Speaks in full, clear sentences. Psych: Appropriate for situation. MDM: This is a 63-year-old male patient presenting for evaluation of an ongoing lip infection. Differential includes but is not limited to incompletely treated cellulitis, did consider abscess though I do not palpate any fluid collections in the small areas, cosmetically sensitive, would be less amenable to incision and drainage. The patient is without evidence of systemic infection such as bacteremia or sepsis. I note no dental infections, and the patient has no evidence for deep space infection. ED Course: Given that the patient has taken approximately 5 days of antibiotics, I do feel that an extended course is warranted. I did review his prior culture data, and discussed options for changing the antibiotics if the patient is so desiring. He would prefer to stay on the antibiotics that he is taking, and so I and will 7 days each of Augmentin and Cipro, for total of 14-day course. This duel coverage should also treat the small cellulitis in his groin. The patient was encouraged to call his primary care provider and try to schedule a sooner appointment for reevaluation, and we had an extended discussion regarding return precautions. At this time, the patient has had a full medical evaluation and is safe for discharge to home. They are hemodynamically stable, ambulatory, and tolerating PO. They are understanding of the follow-up plan and return precautions. They left our facility without incident. Elizabet Conroy MD Related Data Home Medications ?Medication ?Instructions ?Recorded ?Confirmed aspirin 81 mg tablet,delayed 81 mg PO DAILY 01/08/19 07/04/24 release (Adult Low Dose Aspirin) epinephrine 0.3 mg/0.3 mL 0.3 mg IM ONCE 01/08/19 07/04/24 injection, auto-injector (EpiPen 2-Anibal) omega-3 fatty acids 1,000 mg 1,000 mg PO DAILY 01/08/19 07/04/24 capsule (Fish Oil Concentrate) glucosamine-chondroitin 250 mg-200 2 tab PO DAILY 04/04/24 07/04/24 mg tablet (Osteo Bi-Flex) hydrochlorothiazide 25 mg tablet 25 mg PO DAILY #90 tabs 04/24/24 07/04/24 lisinopril 20 mg tablet 20 mg PO DAILY #90 tabs 05/14/24 07/04/24 amoxicillin 875 mg-potassium 1 tab PO BID #14 tabs 06/29/24 07/04/24 clavulanate 125 mg tablet ciprofloxacin HCl 500 mg tablet 500 mg PO BID #14 tabs 06/29/24 07/04/24 amoxicillin 875 mg-potassium 1 tab PO BID 7 days #14 tabs 07/04/24 clavulanate 125 mg tablet ciprofloxacin HCl 500 mg tablet 500 mg PO Q12H 7 days #14 tabs 07/04/24 (Cipro) Previous Rx's ?Medication ?Instructions ?Recorded hydrochlorothiazide 25 mg tablet 25 mg PO DAILY #90 tabs 04/24/24 lisinopril 20 mg tablet 20 mg PO DAILY #90 tabs 05/14/24 amoxicillin 875 mg-potassium 1 tab PO BID #14 tabs 06/29/24 clavulanate 125 mg tablet ciprofloxacin HCl 500 mg tablet 500 mg PO BID #14 tabs 06/29/24 amoxicillin 875 mg-potassium 1 tab PO BID 7 days #14 tabs 07/04/24 clavulanate 125 mg tablet ciprofloxacin HCl 500 mg tablet 500 mg PO Q12H 7 days #14 tabs 07/04/24 (Cipro) Allergies Allergy/AdvReac Type Severity Reaction Status Date / Time Sulfa (Sulfonamide Allergy Unknown Skin Rash Verified 07/04/24 14:34 Antibiotics) venom-honey bee (bee venom Allergy Unknown Swelling/Ed Verified 07/04/24 14:34 (honey bee)) jad General Stated Complaint: Recheck VERONA: 4 Course Vital Signs Vital signs: Vital Signs Temperature 37.3 C 07/04/24 14:35 Pulse 79 07/04/24 14:35 Respiratory Rate 16 07/04/24 14:35 Blood Pressure 142/91 H 07/04/24 14:35 Pulse Oximetry 95 07/04/24 14:35 Temperature 37.3 C 07/04/24 14:35 Temperature Source Temporal Artery Scan 07/04/24 14:35 Pulse 79 07/04/24 14:35 Respiratory Rate 16 07/04/24 14:35 Blood Pressure 142/91 H 07/04/24 14:35 Blood Pressure Position Sitting 07/04/24 14:35 Pulse Oximetry 95 07/04/24 14:35 Oxygen Delivery Method Room Air 07/04/24 14:35 Oxygen Flow Rate 0 07/04/24 14:35 Pain Level 1 07/04/24 14:35 Medical Decision Making Quality:SDOH Health Related Social Needs: No Data to Display PFSH All Active Problems (Updated 07/04/24 @ 15:15 by Elizabet Conroy MD) Cellulitis, face (Acute) MRSA (methicillin resistant Staphylococcus aureus) infection (Acute) Abscess of pubic region (Acute) left Elevated lipids (Acute) Cellulitis of groin (Acute) right Decreased hearing (Acute) Degenerative joint disease of knee (Acute) Osteoarthritis of right glenohumeral joint (Acute) Knee pain, bilateral (Acute) Snoring (Acute) Abnormal cholesterol test (Acute) Degenerative joint disease of right knee (Acute) DEPO MEDROL 07/25/22 Left knee DJD (Acute) DEPO MEDROL 07/25/22 Diverticulosis (Acute) S/P colonoscopy (Acute ~03/11/19) 2008- sessile serrated adenoma and hyperplastic polyp Bee sting allergy (Acute) Obesity (Chronic) Hypertension (Chronic) Medical History (Updated 07/04/24 @ 15:15 by Elizabet Conroy MD) Screening for colon cancer Allergic rhinitis Allergy to insects and arachnids Tobacco use disorder Strain of right calf muscle Resolved - Placed at [facility] on 05/13/2022 History of colon polyps Surgical History (Updated 06/10/24 @ 11:08 by Camila Botello DO) H/O drainage of abscess Left suprapubic region History of surgical removal of skin lesion R under arm Family History Sister Breast cancer Hypertension Mother Diabetes Hypertension Father Hypertension Social History Smoking/Tobacco Use Status: Never Smokeless tobacco user: chewing tobacco Quit status: has quit before Second Hand Exposure: Yes Smoking risk assessment performed?: Yes Alcohol Intake: current Alcohol Intake frequency: 0-2 drinks per day Alcohol type: beer Drug use: Never Substance use type: does not use Details: last chew: 2099. 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 Pets and animals: Yes Pets and animals: cat(s) Sexually active: Yes Do you think of yourself as: straight/heterosexual Current gender identity: male What is your relationship status?: How often do you talk on the phone with friends or family?: twice per week How often do you get together with friends or relatives?: twice per week Do you belong to any clubs or organized social groups?: no Panel score (0-1 are the most socially isolated patients): 2 What type of physical activity do you participate in: walking and additional Details: stretching Duration: 30-45 minutes/day Frequency: daily Nuria/Alevism: Yarsanism Special nuria needs: No Seatbelt use: always Drive intox or ride w/intox hammer driver: No Do you feel safe at home: Yes Do you feel safe in your relationship?: Yes
[2024-07-04 15:30] VITALS: BP 106/72; PULSE 82; RESP 18; O2SAT 94
== END 2024-07-04 15:31 | disposition home or self-care (01) ==
PROVIDERS: Emergency Provider Emergency Medicine; PCP Nurse Practitioner Family
DX: L03.211 Cellulitis of face (principal); A49.02 Methicillin resistant Staphylococcus aureus infection, unspecified site; L03.314 Cellulitis of groin; I10 Essential (primary) hypertension
CPT/HCPCS: 99283

== ENCOUNTER 2024-08-21 22:33 | Outpatient (REF) | payer OTHER, SELFPAY | END 2024-08-21 22:34 | disposition home or self-care (01) | LOC: NCHCN 22:33 | PROVIDERS: PCP Nurse Practitioner Family; Visit Provider Nurse Practitioner Family | DX: S31.30XA Unspecified open wound of scrotum and testes, initial encounter; B95.62 Methicillin resistant Staphylococcus aureus infection as the cause of diseases classified elsewhere; X58.XXXA Exposure to other specified factors, initial encounter | CPT/HCPCS: 87077; 87070; 87186 ==

== ENCOUNTER 2024-08-23 11:54 | Observation (INO) | payer OTHER, SELFPAY ==
[2024-08-23] VITALS (7 sets, daily range): BP systolic 103–136; BP diastolic 58–84; PULSE 58–86; RESP 16–20; TEMP 36.2–36.9; O2SAT 95–99; BMI 38.0
--- NOTE | 2024-08-23 12:08 | ED.GENADUL_ITS ---
Discharge Plan Discharge Details Chief Complaint: Cellulitis Attending Provider: Gaudencio Wyman Primary Care Provider: Meghna Clark ED Provider: Tyrel Cohen Home Meds and New Rx's Prescriptions: No Action aspirin [Adult Low Dose Aspirin] 81 mg tablet,delayed release (DR/EC) 81 mg PO DAILY epinephrine [EpiPen 2-Anibal] 0.3 mg/0.3 mL auto-injector 0.3 mg IM ONCE omega-3 fatty acids [Fish Oil Concentrate] 1,000 mg capsule 1,000 mg PO DAILY nystatin 100,000 unit/gram cream 1 applic topical BID Qty: 30 0RF mupirocin 2 % ointment 1 applic topical BID Qty: 22 0RF Rx Instructions: apply to each nare w/qtip BID for 10 days glucosamine-chondroitin [Osteo Bi-Flex] 250-200 mg tablet 2 tab PO DAILY Rx Instructions: give after food/meal linezolid 600 mg tablet 600 mg PO Q12H Qty: 20 0RF hydrochlorothiazide 25 mg tablet 25 mg PO DAILY Qty: 90 3RF lisinopril 20 mg tablet 20 mg PO DAILY Qty: 90 3RF HPI General Date/Time Provider Initiated Documentation: 08/23/24 12:08 . HPI Narrative: MDM This is an overall very well-appearing normothermic and nontachycardic 63-year-old male with history of MRSA failing outpatient therapy on linezolid for which he will require hospitalization with IV vancomycin following CT scan and surgery consult for incision and drainage given complex history and the past and need for hospitalization. I am also concerned about the possibility of necrotizing soft tissue infection given his purulent drainage from his ulcerated area on his right hemiscrotum. Patient is not septic so I did not obtain a lactate nor blood cultures. In the event that there is a component of MSSA will also treat with cephalexin and obtain basic labs. 4:15 PM I spoke with Dr. Wyman from the general surgery team who planned on OR. I was in touch with Dr. Jenkins who is available to consult as needed on the patient over the weekend as his CT scan is concerning for the possibility of scrotal abscess. Ultimately Dr. Greenwood from the medical team graciously agreed to accept the patient for hospitalization. He remained hemodynamically stable in the emergency department. HPI This is a 63-year-old male arrived to the emergency department via private vehicle in the setting of worsening abscesses despite outpatient linezolid. Patient has been on 2 and half days of oral antibiotics. He has been adherent with these treatments. He has a prior history of hospitalization and surgical incision and drainage in the setting of MRSA. He notes an open area on the right side of his testicle that has foul-smelling drainage. He also has an abscess on the medial side of his right thigh. He denies history of diabetes tobacco use. He is not been nauseous nor vomiting. Denies any IV drug use. Exam General: Well-appearing in no acute distress speaking in complete sentences. Head: Normocephalic, atraumatic. Eye: Extraocular eye movements intact. No conjunctival injection. No scleral icterus. Ear, nose, mouth, throat: Grossly normal inspection. Normal voice, handling secretions normally. Neck: Trachea midline. Cardiovascular: Well-perfused distal extremities. Respiratory: Nonlabored respiration. Gastrointestinal: Nondistended abdomen. Musculoskeletal: No edema. Moving all 4 extremities spontaneously. Skin: On the right lower extremity medial proximal thigh there is an indurated approximately 3 x 3 cm area with surrounding erythema. Suprapubically there is a small approximately 1 cm? area with fluctuance. There is open area with purulent drainage in the right hemiscrotum. No crepitance. Neurologic: Alert and appropriate, no apparent acute deficits. GCS 15. Psychiatric: Mood and manner are appropriate. Grooming and personal hygiene are appropriate. Related Data Home Medications ?Medication ?Instructions ?Recorded ?Confirmed aspirin 81 mg tablet,delayed 81 mg PO DAILY 01/08/19 08/23/24 release (Adult Low Dose Aspirin) epinephrine 0.3 mg/0.3 mL 0.3 mg IM ONCE 01/08/19 08/23/24 injection, auto-injector (EpiPen 2-Anibal) omega-3 fatty acids 1,000 mg 1,000 mg PO DAILY 01/08/19 08/23/24 capsule (Fish Oil Concentrate) glucosamine-chondroitin 250 mg-200 2 tab PO DAILY 04/04/24 08/23/24 mg tablet (Osteo Bi-Flex) hydrochlorothiazide 25 mg tablet 25 mg PO DAILY #90 tabs 04/24/24 08/23/24 lisinopril 20 mg tablet 20 mg PO DAILY #90 tabs 05/14/24 08/23/24 mupirocin 2 % topical ointment 1 applic topical BID #22 grams 08/07/24 08/23/24 nystatin 100,000 unit/gram topical 1 applic topical BID #30 grams 08/07/24 08/23/24 cream linezolid 600 mg tablet 600 mg PO Q12H #20 tabs 08/21/24 08/23/24 Previous Rx's ?Medication ?Instructions ?Recorded hydrochlorothiazide 25 mg tablet 25 mg PO DAILY #90 tabs 04/24/24 lisinopril 20 mg tablet 20 mg PO DAILY #90 tabs 05/14/24 mupirocin 2 % topical ointment 1 applic topical BID #22 grams 08/07/24 nystatin 100,000 unit/gram topical 1 applic topical BID #30 grams 08/07/24 cream linezolid 600 mg tablet 600 mg PO Q12H #20 tabs 08/21/24 Allergies Allergy/AdvReac Type Severity Reaction Status Date / Time Sulfa (Sulfonamide Allergy Unknown Skin Rash Verified 08/23/24 11:57 Antibiotics) venom-honey bee (bee venom Allergy Unknown Swelling/Ed Verified 08/23/24 11:57 (honey bee)) jad General Stated Complaint: Cellulitis VERONA: 3 Course Vital Signs Vital signs: Vital Signs Temperature 36.7 C 08/23/24 11:58 Pulse 86 08/23/24 11:58 Respiratory Rate 20 08/23/24 11:58 Blood Pressure 136/84 08/23/24 11:58 Pulse Oximetry 95 08/23/24 11:58 Temperature 36.7 C 08/23/24 11:58 Temperature Source Oral 08/23/24 11:58 Pulse 86 08/23/24 11:58 Respiratory Rate 20 08/23/24 11:58 Blood Pressure 136/84 08/23/24 11:58 Blood Pressure Position Sitting 08/23/24 11:58 Pulse Oximetry 95 08/23/24 11:58 Oxygen Delivery Method Room Air 08/23/24 11:58 Oxygen Flow Rate 0 08/23/24 11:58 Pain Level 4 08/23/24 11:58 Medical Decision Making Quality:SDOH Health Related Social Needs: No Data to Display PFSH All Active Problems (Updated 08/23/24 @ 14:59 by Leander Greenwood MD) Scrotal abscess (Acute) Open wound of scrotum (Acute) Cellulitis (Acute) Hx MRSA infection (Acute) Intertrigo (Acute) MRSA (methicillin resistant Staphylococcus aureus) infection (Acute) Abscess of pubic region (Acute) left Elevated lipids (Acute) Cellulitis of groin (Acute) right Decreased hearing (Acute) Degenerative joint disease of knee (Acute) Osteoarthritis of right glenohumeral joint (Acute) Knee pain, bilateral (Acute) Snoring (Acute) Abnormal cholesterol test (Acute) Degenerative joint disease of right knee (Acute) DEPO MEDROL 07/25/22 Left knee DJD (Acute) DEPO MEDROL 07/25/22 Diverticulosis (Acute) S/P colonoscopy (Acute ~03/11/19) 2008- sessile serrated adenoma and hyperplastic polyp Bee sting allergy (Acute) Obesity (Chronic) Hypertension (Chronic) Medical History (Updated 08/23/24 @ 14:59 by Leander Greenwood MD) Screening for colon cancer Allergic rhinitis Allergy to insects and arachnids Tobacco use disorder Strain of right calf muscle Resolved - Placed at [facility] on 05/13/2022 History of colon polyps Surgical History (Updated 06/10/24 @ 11:08 by Camila Botello DO) H/O drainage of abscess Left suprapubic region History of surgical removal of skin lesion R under arm Family History Sister Breast cancer Hypertension Mother Diabetes Hypertension Father Hypertension Social History Smoking/Tobacco Use Status: Never Smokeless tobacco user: chewing tobacco Quit status: has quit before Second Hand Exposure: Yes Smoking risk assessment performed?: Yes Alcohol Intake: current Alcohol Intake frequency: 0-2 drinks per day Alcohol type: beer Drug use: Never Substance use type: does not use Details: last chew: 2099. 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 Pets and animals: Yes Pets and animals: cat(s) Sexually active: Yes Do you think of yourself as: straight/heterosexual Current gender identity: male What is your relationship status?: How often do you talk on the phone with friends or family?: twice per week How often do you get together with friends or relatives?: twice per week Do you belong to any clubs or organized social groups?: no Panel score (0-1 are the most socially isolated patients): 2 What type of physical activity do you participate in: walking and additional Details: stretching Duration: 30-45 minutes/day Frequency: daily Nuria/Faith: Gnosticist Special nuria needs: No Seatbelt use: always Drive intox or ride w/intox vibratory pile driver: No Do you feel safe at home: Yes Do you feel safe in your relationship?: Yes
--- NOTE | 2024-08-23 12:30 | DI.CT_ITS ---
Exam(s) CT PELVIC W CT LOWER EXTREMITY RT W EXAM: CT PELVIC W and CT right lower extremity with contrast CLINICAL HISTORY: Right scrotal ulceration suprapubic abscess TECHNIQUE: Imaging Protocol: Axial computed tomography images with coronal and sagittal reformatted images were created and reviewed CONTRAST MATERIAL: Intravenous: Omnipaque 350 Contrast volume:100 mL Oral: No COMPARISON: CT CT LOWER EXTREMITY RT W from 08/23/2024 FINDINGS: PELVIS: Abdominal Aorta: Abdominal portion non-dilated. Minimal atherosclerotic calcification is seen in the left common iliac artery. Bowel: There is diverticulosis seen in the colon, but no evidence of acute diverticulitis. No bowel wall thickening or obstruction is seen. Appendix is unremarkable. Peritoneal Cavity: No ascites, collection or mesenteric inflammatory response. Soft Tissues: There is defect in the skin along the anterior aspect of the scrotum. There is also th ickening at the base of the defect. The findings are suspicious for an ulcer. The defect lies near the junction of the base of the penis and the scrotum. There is a small fluid collection measuring 3 .8 x 1.9 cm (series 3, image 114). It lies at the posterior aspect of the base of the scrotum in the scan. This may represent a small abscess. Bladder: Symmetric distention, no gross wall thickening. Reproductive Organs: Unremarkable as visualized. Lymph Nodes: Within normal limits. Bones: Within normal limits. No findings to suggest osteomyelitis. RIGHT LOWER EXTREMITY: There is mild subcutaneous infiltration in the medial soft tissues of the right thigh. There is over lying thickening of the skin. The findings are suspicious the findings are most suggestive of a cell ulitis. No focal fluid collection is seen to suggest an abscess. The musculature is unremarkable. There is no evidence of osteomyelitis. Degenerative changes are seen in the knee. There is a small suprapatellar joint effusion. The right femoral and popliteal arteries and veins are unremarkable. IMPRESSION: 1. Ulcerations seen at the anterior aspect of the scrotum near the junction of the base of the penis in the scrotum. 2. 3.8 x 1.9 cm small fluid collection in the posterior aspect of the base of the scrotum which may r epresent a small abscess. 3. Cellulitis involving the medial right thigh. No abscess is identified. 4. No findings to suggest osteomyelitis. RADIATION DOSE DELIVERED: 572.02mGy.cm Total DLP 572.02mGy.cm Total DLP DATA REPOSITORY: All CT scans at this facility are submitted to the National Radiology Data Registry (NRDR) Dose Index Registry (DIR) with the [employer] (ACR). RADIATION OPTIMIZATION: All CT scans at this facility use at least one of these dose optimization te chniques: automated exposure control; mA and/or kV adjustment per patient size (includes targeted exa ms where dose is matched to clinical indication); or iterative reconstruction.
[2024-08-23 12:43] LABS: Abs Immature Grans 0.02 10^3/uL (0.0-0.06); Absolute Basophil Count 0.02 10^3/uL (0.0-0.2); Absolute Lymphocyte Count 1.22 10^3/uL (1.2-3.4); Absolute Monocyte Count 1.01 10^3/uL (0.1-0.8); Absolute Neutrophil Count 4.74 10^3/uL (1.2-6.7); Basophils % 0.3 %; Eosinophils % 4.1 %; HCT 39.8 % (40.0-50.0); Immature Grans % 0.3 %; Lymphocytes % 16.7 %; MCH 31.6 pg (27.0-33.0); MCHC 32.7 % (32.0-36.0); MCV 97 fL (80-95); MPV 8.9 fL (8.0-11.0); Monocytes % 13.8 %; Neutrophils % 64.8 %; Platelet Count 377 10^3/uL (130-400); RBC 4.11 10^6/uL (4.36-5.78); RDW 13.4 % (11.8-14.1); RDW-SD 48.3 fL; WBC 7.31 10^3/uL (4.4-10.8)
[2024-08-23 12:53] LABS: Anion Gap 8.8 mmol/L (3-11); BUN 15 mg/dL (7-18); CO2 30.2 mmol/L (21.0-32.0); CREATININE 0.9 mg/dL (0.70-1.30); Calcium 9.2 mg/dL (8.5-10.1); Chloride 103 mmol/L (98-107); Estimated GFR 96.57 (mL/min/1.73m2); Glucose 98 mg/dL (74-106); Potassium 3.8 mmol/L (3.5-5.1); Sodium 142 mmol/L (136-145)
[2024-08-23] MEDS: cefTRIAXone 2 GM/50 ML BAG IVPB (12:53)
[2024-08-23] MEDS: Omnipaque 350 MG/ML 100 ML BTL IJ (13:26)
[2024-08-23] MEDS: Normal Saline - Diluent 50 ML VIAL IJ (13:28)
[2024-08-23] MEDS: Normal Saline 1,000 ML 125 ML IV ×2 (13:38→19:33)
[2024-08-23] MEDS: VANCOMYCIN 2,000 MG in Normal Saline 500 ML 333.3333 MG IVPB (13:38)
--- NOTE | 2024-08-23 14:19 | ANES.PREOP_ITS ---
General Info Date of Service Date Performed: 08/23/24 Height: 5 ft 10 in Weight: 120.202 kg Body Mass Index (BMI): 38.0 Surgical Procedure: Operation Date: 08/23/24 14:55 Proposed Procedure Side Surgeon p I&D Abscesses Suprapubic Right Gaudencio Wyman MD Meds Allergies and Home Medications Allergies Allergy/AdvReac Type Severity Reaction Status Date / Time Sulfa (Sulfonamide Allergy Unknown Skin Rash Verified 08/23/24 11:57 Antibiotics) venom-honey bee (bee venom Allergy Unknown Swelling/Ed Verified 08/23/24 11:57 (honey bee)) jad Home Medication ?Medication ?Instructions ?Recorded aspirin 81 mg tablet,delayed 81 mg PO DAILY 01/08/19 release (Adult Low Dose Aspirin) epinephrine 0.3 mg/0.3 mL 0.3 mg IM ONCE 01/08/19 injection, auto-injector (EpiPen 2-Anibal) omega-3 fatty acids 1,000 mg 1,000 mg PO DAILY 01/08/19 capsule (Fish Oil Concentrate) glucosamine-chondroitin 250 mg-200 2 tab PO DAILY 04/04/24 mg tablet (Osteo Bi-Flex) hydrochlorothiazide 25 mg tablet 25 mg PO DAILY #90 tabs 04/24/24 lisinopril 20 mg tablet 20 mg PO DAILY #90 tabs 05/14/24 mupirocin 2 % topical ointment 1 applic topical BID #22 grams 08/07/24 nystatin 100,000 unit/gram topical 1 applic topical BID #30 grams 08/07/24 cream linezolid 600 mg tablet 600 mg PO Q12H #20 tabs 08/21/24 Current Visit Medications: Current Medications Generic Name Dose Route Start Last Admin Trade Name Freq PRN Reason Stop Dose Admin Sodium Chloride 1,000 mls @ 125 mls/hr 08/23/24 12:45 08/23/24 13:38 Saline 1000ml Bag IV 08/24/24 00:44 125 mls/hr INFUSION BEATRIS Administration Iohexol 100 ml 08/23/24 13:30 08/23/24 13:26 Omnipaque 350 Mg/Ml 100 Ml Btl IJ 09/22/24 23:59 100 ml DIRECTED BEATRIS Administration Sodium Chloride 50 ml 08/23/24 13:30 08/23/24 13:28 Normal Saline - Diluent 50 Ml Vial IJ 50 ml .FOR DI USE BEATRIS Administration PFSH Active Problems Active Problems: Problem Status Onset Code Open wound of scrotum Acute S31.30XA Cellulitis Acute L03.90 Hx MRSA infection Acute Z86.14 Intertrigo Acute L30.4 MRSA (methicillin resistant Staphylococcus aureus) infection Acute A49.02 Abscess of pubic region Acute L02.219 Elevated lipids Acute E78.5 Cellulitis of groin Acute L03.314 Decreased hearing Acute H91.90 Degenerative joint disease of knee Acute M17.9 Osteoarthritis of right glenohumeral joint Acute M19.011 Knee pain, bilateral Acute M25.561, M25.562 Snoring Acute R06.83 Abnormal cholesterol test Acute E78.9 Degenerative joint disease of right knee Acute M17.11 Left knee DJD Acute M17.12 Diverticulosis Acute K57.90 S/P colonoscopy Acute ~03/11/19 Z98.890 Bee sting allergy Acute Z91.030 Obesity Chronic E66.9 Hypertension Chronic I10 Medical History Medical History (Updated 08/23/24 @ 14:59 by Leander Greenwood MD) Screening for colon cancer Allergic rhinitis Allergy to insects and arachnids Tobacco use disorder Strain of right calf muscle Resolved - Placed at [facility] on 05/13/2022 History of colon polyps Surgical History Surgical History (Updated 06/10/24 @ 11:08 by Camila Botello DO) H/O drainage of abscess Left suprapubic region History of surgical removal of skin lesion R under arm Tobacco Smoking/Tobacco Use Status: Never Smokeless tobacco user: chewing tobacco Passive smoking exposure: Yes Second hand exposure: Yes Alcohol Alcohol Intake: current Alcohol intake frequency: 0-2 drinks per day Alcohol type: beer Substance Use Substance use: Never Substance use type: does not use Details: last chew: t-2099. Alcohol: t-2, 2 beers Vital Signs and Lab Results Vital Signs Most Recent Vital Signs in EMR: Most Recent Vital Signs Temp Pulse Resp BP Pulse Ox 36.7 C 69 18 123/77 98 08/23/24 11:58 08/23/24 13:41 08/23/24 13:41 08/23/24 13:41 08/23/24 13:41 Lab Results 08/23/24 12:16 08/23/24 12:16 Blood Type / Crossmatch: 2 No Data to Display Complete Blood Count: 2 White Blood Count 7.31 10^3/uL (4.4-10.8) 08/23/24 12:16 Red Blood Count 4.11 10^6/uL (4.36-5.78) L 08/23/24 12:16 Hemoglobin 13.0 g/dL (13.5-17.5) L 08/23/24 12:16 Hematocrit 39.8 % (40.0-50.0) L 08/23/24 12:16 Platelet Count 377 10^3/uL (130-400) 08/23/24 12:16 Complete Metabolic Panel: 2 Sodium 142 mmol/L (136-145) 08/23/24 12:16 Potassium 3.8 mmol/L (3.5-5.1) 08/23/24 12:16 Chloride 103 mmol/L (98-107) 08/23/24 12:16 Carbon Dioxide 30.2 mmol/L (21.0-32.0) 08/23/24 12:16 BUN 15 mg/dL (7-18) 08/23/24 12:16 Creatinine 0.9 mg/dL (0.70-1.30) 08/23/24 12:16 Est GFR (CKD-EPI 2020) 96.57 (mL/min/1.73m2) 08/23/24 12:16 Calcium 9.2 mg/dL (8.5-10.1) 08/23/24 12:16 Glucose 98 mg/dL (74-106) 08/23/24 12:16 Liver Function Panel: 2 No Data to Display Coagulation Panel: 2 No Data to Display Cardiac Panel: 2 No Data to Display Arterial Blood Gas: 2 No Data to Display Venous Blood Gas: 2 No Data to Display Pancreas Panel: 2 No Data to Display Thyroid Panel: 2 No Data to Display Infectious Disease: 2 No Data to Display Blood Cultures: 2 No Data to Display Toxicology Panel: 2 No Data to Display Anesthesia Assessment and Plan Anesthesia History Personal History: No History of Anesthesia Complications Family History: No Family History of Anesthesia Complications Exercise Tolerance Exercise Tolerance: Metabolic Equivalents>4 Pertinent Negatives Pertinent Negatives: No Symptoms of GERD Cardiac & Pulmonary Exam Cardiac Exam: Normal S1/S2 Heart Sounds Pulmonary Exam: Clear Bilateral Breath Sounds Implantable Cardiac Device Does patient have a Pacemaker or an ICD?: No Airway Exam Known Difficult Airway: No Mallampati Class: 2 Mouth Opening: Normal (> 3cm) Thyromental Distance: Greater than 3 cm Neck Range of Motion: Limited ROM Neck Circumference: Thick Teeth Condition: Normal Dentition ASA Classification ASA Score: ASA 2 Emergency Case?: No NPO Status NPO Status: NPO Clears >2 hours, Solids >8 hours Anesthesia Plan Resuscitation Status: Full Code Anesthesia Technique: General Anesthesia Airway Planned: Natural Airway Monitors Used: Standard Monitors
--- NOTE | 2024-08-23 14:46 | W.PM.HP.N ---
Date of service: 08/23/24 Time of Service: 14:46 Assessment and Plan Assessment and plan (1) Scrotal abscess: Status: Acute Assessment and plan: - Patient presented with known cellulitis that progressed and developed abscess of the right Landry scrotum and base of the penis with significant purulent drainage as seen on CT -Patient's vitals and labs not consistent with sepsis -Patient was on p.o. linezolid as an outpatient resulting in failed therapy -Was started on vancomycin and ceftriaxone in the emergency department, will continue -Patient going to the OR with general surgery from the emergency department, appreciate their care and will manage postop care (2) MRSA (methicillin resistant Staphylococcus aureus) infection: Status: Acute Assessment and plan: - Initial wound culture from outpatient growing MRSA (3) Hypertension: Status: Chronic Assessment and plan: - Continue home lisinopril and hydrochlorothiazide History of Present Illness History of Present Illness Chief Complaint: Worsening cellulitis Narrative: 63-year-old gentleman with a history of MRSA cellulitis, hypertension who presents to the emergency department finding of worsening inguinal/testicular abscess despite outpatient oral antibiotic therapy. Patient noted abscesses and presented to his PCPs office 3 days ago where he was started on p.o. linezolid. However, he has not experienced improvement and if anything his cellulitis/abscess has gotten worse to the point where it is begun to drain significant foul smelling fluid. He denies any fevers, headache, lightheadedness, dizziness, chest pain, shortness of breath, nausea vomiting or diarrhea. In the emergency department the patient was noted as having normal vital signs, normal CBC and CMP but significantly worsening abscess and cellulitis of the right side of his testicle with foul-smelling drainage. Patient had CT of the pelvis and lower extremity that showed ulcerations of the anterior aspect of the scrotum near the junction of the base of the penis and the scrotum as well as a 3.8 x 1.9 small fluid collection in the posterior aspect of the base of the scrotum which may also represent a small abscess as well as cellulitis involving the medial right thigh without abscess. General Surgery was consulted and agreed to take patient to the OR and emergency room physician paged hospitalist for admission for patient with failed outpatient therapy of scrotal abscess. Review of Systems All systems reviewed & are unremarkable except as noted in HPI and below PFSH All Active Problems (Updated 08/23/24 @ 16:17 by RADHA JONES) Abscess of thigh (Acute) MRSA infection (Acute) Abscess of scrotum (Acute) Scrotal abscess (Acute) Open wound of scrotum (Acute) Cellulitis (Acute) Hx MRSA infection (Acute) Intertrigo (Acute) MRSA (methicillin resistant Staphylococcus aureus) infection (Acute) Abscess of pubic region (Acute) left Elevated lipids (Acute) Cellulitis of groin (Acute) right Decreased hearing (Acute) Degenerative joint disease of knee (Acute) Osteoarthritis of right glenohumeral joint (Acute) Knee pain, bilateral (Acute) Snoring (Acute) Abnormal cholesterol test (Acute) Degenerative joint disease of right knee (Acute) DEPO MEDROL 07/25/22 Left knee DJD (Acute) DEPO MEDROL 07/25/22 Diverticulosis (Acute) S/P colonoscopy (Acute ~03/11/19) 2008- sessile serrated adenoma and hyperplastic polyp Bee sting allergy (Acute) Obesity (Chronic) Hypertension (Chronic) Medical History (Updated 08/23/24 @ 16:17 by RADHA JONES) Screening for colon cancer Allergic rhinitis Allergy to insects and arachnids Tobacco use disorder Strain of right calf muscle Resolved - Placed at [facility] on 05/13/2022 History of colon polyps Surgical History (Updated 06/10/24 @ 11:08 by Camila Botello DO) H/O drainage of abscess Left suprapubic region History of surgical removal of skin lesion R under arm Family History Sister Breast cancer Hypertension Mother Diabetes Hypertension Father Hypertension Social History Smoking/Tobacco Use Status: Never Smokeless tobacco user: chewing tobacco Quit status: has quit before Second Hand Exposure: Yes Smoking risk assessment performed?: Yes Alcohol Intake: current Alcohol Intake frequency: 0-2 drinks per day Alcohol type: beer Drug use: Never Substance use type: does not use Details: last chew: 2099. 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 Pets and animals: Yes Pets and animals: cat(s) Sexually active: Yes Do you think of yourself as: straight/heterosexual Current gender identity: male What is your relationship status?: How often do you talk on the phone with friends or family?: twice per week How often do you get together with friends or relatives?: twice per week Do you belong to any clubs or organized social groups?: no Panel score (0-1 are the most socially isolated patients): 2 What type of physical activity do you participate in: walking and additional Details: stretching Duration: 30-45 minutes/day Frequency: daily Nuria/Baptist: Oriental Orthodox Special nuria needs: No Seatbelt use: always Drive intox or ride w/intox class c truck driver: No Do you feel safe at home: Yes Do you feel safe in your relationship?: Yes Meds Allergies and Home Medications Allergies Allergy/AdvReac Type Severity Reaction Status Date / Time Sulfa (Sulfonamide Allergy Unknown Skin Rash Verified 08/23/24 11:57 Antibiotics) venom-honey bee (bee venom Allergy Unknown Swelling/Ed Verified 08/23/24 11:57 (honey bee)) jad Home Medications ?Medication ?Instructions ?Recorded ?Confirmed ?Type aspirin 81 mg tablet,delayed 81 mg PO DAILY 01/08/19 08/23/24 History release (Adult Low Dose Aspirin) epinephrine 0.3 mg/0.3 mL 0.3 mg IM ONCE 01/08/19 08/23/24 History injection, auto-injector (EpiPen 2-Anibal) omega-3 fatty acids 1,000 mg 1,000 mg PO DAILY 01/08/19 08/23/24 History capsule (Fish Oil Concentrate) glucosamine-chondroitin 250 mg-200 2 tab PO DAILY 04/04/24 08/23/24 History mg tablet (Osteo Bi-Flex) hydrochlorothiazide 25 mg tablet 25 mg PO DAILY #90 tabs 04/24/24 08/23/24 Rx lisinopril 20 mg tablet 20 mg PO DAILY #90 tabs 05/14/24 08/23/24 Rx mupirocin 2 % topical ointment 1 applic topical BID #22 grams 08/07/24 08/23/24 Rx nystatin 100,000 unit/gram topical 1 applic topical BID #30 grams 08/07/24 08/23/24 Rx cream linezolid 600 mg tablet 600 mg PO Q12H #20 tabs 08/21/24 08/23/24 Rx Exam Narrative Exam Narrative: Well-appearing older gentleman laying in bed in no acute distress, ANO x 4, heart regular rhythm, lungs clear to auscultation bilaterally, abdomen soft, nontender, nondistended, bandage over recently operated on incision and drainage of the right upper inner thigh/base of scrotal cellulitis without signs of surrounding erythema or drainage Results Labs 08/23/24 12:16 08/23/24 12:16 Labs: Laboratory Results - last 24 hr 08/23/24 12:16 WBC 7.31 RBC 4.11 L Hgb 13.0 L Hct 39.8 L MCV 97 H MCH 31.6 MCHC 32.7 RDW 13.4 Plt Count 377 MPV 8.9 Immature Gran % 0.3 Neutrophils % 64.8 Lymphocytes % 16.7 Monocytes % 13.8 Eosinophils % 4.1 Basophils % 0.3 Nucleated RBC % 0.0 Absolute Neutrophils 4.74 Absolute Lymphocytes 1.22 Absolute Monocytes 1.01 H Absolute Eosinophils 0.30 Absolute Basophils 0.02 Sodium 142 Potassium 3.8 Chloride 103 Carbon Dioxide 30.2 Anion Gap 8.8 BUN 15 Creatinine 0.9 Est GFR (CKD-EPI 2020) 96.57 Glucose 98 Calcium 9.2 Last Vital Signs Temp 98.1 F 08/23/24 11:58 Pulse 69 08/23/24 13:41 Resp 18 08/23/24 13:41 BP 123/77 08/23/24 13:41 Pulse Ox 98 08/23/24 13:41 Time Spent Time spent with Patient: >75 minutes Time was spent: preparing to see the patient(eg.review tests), obtaining and/or reviewing separately otained hiistory, ordering medications,tests, procedures, referring, communicating with other health patient care provider, indepentently interpreting results, counseling the patient and care coordination
--- NOTE | 2024-08-23 14:49 | NUR.NOTE ---
PT resting quietly. Nursing Note:
[2024-08-23] MEDS: Bupivacaine 0.5% Pres-Free W/EPI 30 ML VIAL (16:12)
--- NOTE | 2024-08-23 16:13 | W.SURGCON ---
Date of service: 08/23/24 Time of Service: 16:14 History of Present Illness History of Present Illness Chief Complaint: Scrotal and thigh pain PFSH All Active Problems (Updated 08/23/24 @ 14:59 by Leander Greenwood MD) Scrotal abscess (Acute) Open wound of scrotum (Acute) Cellulitis (Acute) Hx MRSA infection (Acute) Intertrigo (Acute) MRSA (methicillin resistant Staphylococcus aureus) infection (Acute) Abscess of pubic region (Acute) left Elevated lipids (Acute) Cellulitis of groin (Acute) right Decreased hearing (Acute) Degenerative joint disease of knee (Acute) Osteoarthritis of right glenohumeral joint (Acute) Knee pain, bilateral (Acute) Snoring (Acute) Abnormal cholesterol test (Acute) Degenerative joint disease of right knee (Acute) DEPO MEDROL 07/25/22 Left knee DJD (Acute) DEPO MEDROL 07/25/22 Diverticulosis (Acute) S/P colonoscopy (Acute ~03/11/19) 2008- sessile serrated adenoma and hyperplastic polyp Bee sting allergy (Acute) Obesity (Chronic) Hypertension (Chronic) Medical History (Updated 08/23/24 @ 14:59 by Leander Greenwood MD) Screening for colon cancer Allergic rhinitis Allergy to insects and arachnids Tobacco use disorder Strain of right calf muscle Resolved - Placed at [facility] on 05/13/2022 History of colon polyps Surgical History (Updated 06/10/24 @ 11:08 by Camila Botello DO) H/O drainage of abscess Left suprapubic region History of surgical removal of skin lesion R under arm Family History Sister Breast cancer Hypertension Mother Diabetes Hypertension Father Hypertension Social History Smoking/Tobacco Use Status: Never Smokeless tobacco user: chewing tobacco Quit status: has quit before Second Hand Exposure: Yes Smoking risk assessment performed?: Yes Alcohol Intake: current Alcohol Intake frequency: 0-2 drinks per day Alcohol type: beer Drug use: Never Substance use type: does not use Details: last chew: 2099. 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 Pets and animals: Yes Pets and animals: cat(s) Sexually active: Yes Do you think of yourself as: straight/heterosexual Current gender identity: male What is your relationship status?: How often do you talk on the phone with friends or family?: twice per week How often do you get together with friends or relatives?: twice per week Do you belong to any clubs or organized social groups?: no Panel score (0-1 are the most socially isolated patients): 2 What type of physical activity do you participate in: walking and additional Details: stretching Duration: 30-45 minutes/day Frequency: daily Nuria/Pentecostal: Restoration Special nuria needs: No Seatbelt use: always Drive intox or ride w/intox hazmat cdl driver: No Do you feel safe at home: Yes Do you feel safe in your relationship?: Yes Results Last Vital Signs Temp 98.1 F 08/23/24 11:58 Pulse 60 08/23/24 15:08 Resp 18 08/23/24 15:08 BP 107/69 08/23/24 15:08 Pulse Ox 97 08/23/24 15:08 Labs 08/23/24 12:16 08/23/24 12:16 Labs: Laboratory Results - last 24 hr 08/23/24 12:16 WBC 7.31 RBC 4.11 L Hgb 13.0 L Hct 39.8 L MCV 97 H MCH 31.6 MCHC 32.7 RDW 13.4 Plt Count 377 MPV 8.9 Immature Gran % 0.3 Neutrophils % 64.8 Lymphocytes % 16.7 Monocytes % 13.8 Eosinophils % 4.1 Basophils % 0.3 Nucleated RBC % 0.0 Absolute Neutrophils 4.74 Absolute Lymphocytes 1.22 Absolute Monocytes 1.01 H Absolute Eosinophils 0.30 Absolute Basophils 0.02 Sodium 142 Potassium 3.8 Chloride 103 Carbon Dioxide 30.2 Anion Gap 8.8 BUN 15 Creatinine 0.9 Est GFR (CKD-EPI 2020) 96.57 Glucose 98 Calcium 9.2
--- NOTE | 2024-08-23 16:14 | ROE_ITS ---
Operative Note Operative Note PRE-OP DIAGNOSIS: Suprapubic, right scrotal, right thigh abscess POST-OP DIAGNOSIS: same PROCEDURE: Incision and drainage of suprapubic, right scrotal, right thigh abscesses with irrigation and packing SURGEON: Gaudencio Wyman ANESTHESIA TYPE: Local By Surgeon and MAC Refer to Anesthesia Record ESTIMATED BLOOD LOSS: 10 PATHOLOGY: other (Gram stain and culture of right scrotal and right thigh abscesses) COMPLICATIONS: None Patient was transported to: PACU Patient's condition: stable Indications: Sushil is a 63-year-old male whose had increasing erythema and induration of his right thigh, and the inner portion of the right scrotum. He is also had spontaneous drainage from the right scrotum. He reports a small lesion in the suprapubic area that is become increasingly painful as well. He did notice some redness in that area. Findings: Punctate abscess in the suprapubic region, 3 cm x 2 cm abscess in the right scrotum, 5 cm x 6 cm abscess in the right thigh Procedure Description: I met with Sushil in the preoperative area, and we reviewed the wounds together, and the plan for incision drainage washout and packing of all of these wounds. I explained the risks and the benefits of the procedure, and he provided informed consent. Next, we moved back to the OR. He was assisted to a comf ortable, frog-leg type position, and he was padded and supported appropriately. Once he was comfortable, anesthesia was initiated. We then prepped and draped suprapubic area, genitals, and right thigh. I established a generous field blocks over all the areas with local anesthetic including epinephrine. I began with suprapubic lesion. At the skin level this was only about 1 cm in its biggest dimension, mostly erythematous. There was minimal fluctuance. I made a cruciate incision over the area, and opened a small cavity of the subcutaneous tissue to help facilitate any remaining drainage. There was really minimal purulent fluid here. There was not even enough for meaningful Gram stain. I did irrigate this clean, placed a small amount of iodoform packing into the wound. Next, I turned my attention to the right thigh. Over the greatest area of fluctuance I made a cruciate incision, there was immediate relief of thick purulent fluid from the subcutaneous tissues. Specimens of this were obtained for Gram stain and culture. There were several loculations in the deep fat that I was able to disrupt easily with finger. The incision was extended a little bit anterior and posterior. I would estimate the size of the cavity to be about 5 cm x 6 cm in its greatest dimensions. I irrigated this until the effluent ran clear. I then packed this with iodoform packing as well. Finally, I turned my attention to the right scrotum. This was already spontaneously draining pus. The opening in the skin was gently dilated with a hemostat, and purulent fluid was encountered here. Again, specimens were obtained. This tracked slightly this cavity was approximately 3 cm long by about 2 cm wide. Again, some small loculations were disrupted, and this cavity was also irrigated clean. Similar to the other 2, iodoform packing was used here. An ABD was placed over the thigh wound and secured in place with tape, and the other 2 wounds were covered with gauze, and held in place with mesh underpants. The anesthetic was allowed to wear off, the patient was then transferred to the recovery unit prior to moving up to the floor. Date of Procedure: 08/23/24
--- NOTE | 2024-08-23 16:47 | W.ANESPOSTOP ---
Postoperative Evaluation Date, Time and Location Date Performed: 08/23/24 Time Performed: 16:47 Patient Location: Med/Surg Vital Signs Most Recent Imported Vital Signs: Most Recent Vital Signs Temp Pulse Resp BP Pulse Ox 36.2 C L 82 16 119/59 L 98 08/23/24 16:38 08/23/24 16:38 08/23/24 16:38 08/23/24 16:38 08/23/24 16:38 Pain Score Most Recent Pain Score: Most Recent Pain Score Pain Level 1 08/23/24 16:38 Assessment Mental Status: Awake (Alert & Oriented to Patient Baseline) Airway and Respiratory Function: Patent airway with normal (patient baseline) respiratory exam Cardiovascular Function: Hemodynamically Stable Hydration Status: Adequately Hydrated Nausea & Vomiting: No Nausea or Vomiting Pain: Pain is tolerable per patient Peripheral Nerve Block: Patient did not receive a nerve block
--- NOTE | 2024-08-23 17:19 | W.PC.ACHO ---
Registration Status: Primary Language: Preferred Language: ED Information & Data Chief Complaint Cellulitis 08/23/24 12:43 Triage Note Sent by PCP for IV 08/23/24 11:58 antibiotics. Pt has several lesions in groin and on left thigh, reported to be MRSA. On Linezolid PO, PCP told him he needs IV antibiotics. On day 2 of oral antibiotics. No fever or muscle aches. Reports localized infection and pain . Lesion under right testicle open and purulent drainage. Medical / Surgical History (Last Reviewed 05/30/24 @ 23:22 by Camila Botello DO) Screening for colon cancer Allergic rhinitis Allergy to insects and arachnids Tobacco use disorder Strain of right calf muscle History of colon polyps (Last Updated 06/10/24 @ 11:08 by Camila Botello DO) H/O drainage of abscess History of surgical removal of skin lesion Most Recent Vital Signs Temperature 97.2 F L 08/23/24 16:38 Temperature Source Temporal Artery Scan 08/23/24 16:38 Pulse 82 08/23/24 16:38 Pulse Rhythm Regular 08/23/24 16:35 Respiratory Rate 16 08/23/24 16:38 Respiratory Effort Normal, Non-Labored 08/23/24 16:35 Respiratory Depth Normal 08/23/24 16:35 Respiratory Pattern Normal 08/23/24 16:35 Blood Pressure 119/59 L 08/23/24 16:38 Blood Pressure Position Sitting 08/23/24 11:58 Pulse Oximetry 98 08/23/24 16:38 Oxygen Delivery Method Room Air 08/23/24 16:38 Oxygen Flow Rate 0 08/23/24 16:38 Pain Level 1 08/23/24 16:38 Allergies Sulfa (Sulfonamide Antibiotics) Allergy (Unknown, Verified 08/23/24 11:57) Skin Rash venom-honey bee (bee venom (honey bee)) Allergy (Unknown, Verified 08/23/24 11:57) Swelling/Edema Active Medications Generic Name Dose Route Start Last Admin Trade Name Freq PRN Reason Stop Dose Admin Sodium Chloride 1,000 mls @ 125 mls/hr 08/23/24 12:45 08/23/24 16:10 Saline 1000ml Bag IV 08/24/24 00:44 125 mls/hr INFUSION BEATRIS Infusion IV IV Catheter Type [Right Hand] Saline Lock IV Catheter Gauge [Right Hand] 20 Diet Orders Category Date Time Status Diet [Regular/Normal] [DIET] Nutrition 08/23/24 Dinner Active Diagnostics 08/23/24 Range/Units 12:16 WBC 7.31 (4.4-10.8) 10^3/uL RBC 4.11 L (4.36-5.78) 10^6/uL Hgb 13.0 L (13.5-17.5) g/dL Hct 39.8 L (40.0-50.0) % MCV 97 H (80-95) fL MCH 31.6 (27.0-33.0) pg MCHC 32.7 (32.0-36.0) % RDW 13.4 (11.8-14.1) % Plt Count 377 (130-400) 10^3/uL MPV 8.9 (8.0-11.0) fL Immature Gran % 0.3 % Neutrophils % 64.8 % Lymphocytes % 16.7 % Monocytes % 13.8 % Eosinophils % 4.1 % Basophils % 0.3 % Nucleated RBC % 0.0 (0.0-0.3) % Absolute Neutrophils 4.74 (1.2-6.7) 10^3/uL Absolute Lymphocytes 1.22 (1.2-3.4) 10^3/uL Absolute Monocytes 1.01 H (0.1-0.8) 10^3/uL Absolute Eosinophils 0.30 (0.0-0.7) 10^3/uL Absolute Basophils 0.02 (0.0-0.2) 10^3/uL Sodium 142 (136-145) mmol/L Potassium 3.8 (3.5-5.1) mmol/L Chloride 103 (98-107) mmol/L Carbon Dioxide 30.2 (21.0-32.0) mmol/L Anion Gap 8.8 (3-11) mmol/L BUN 15 (7-18) mg/dL Creatinine 0.9 (0.70-1.30) mg/dL Est GFR (CKD-EPI 2020) 96.57 (mL/min/1.73m2) Glucose 98 (74-106) mg/dL Calcium 9.2 (8.5-10.1) mg/dL 08/23/24 15:54 Surgical Culture - Pending Thigh - Right Gram Stain - Pending 08/23/24 15:54 Anaerobic Culture - Pending Thigh - Right 08/23/24 15:54 Surgical Culture - Pending Scrotum Gram Stain - Pending 08/23/24 15:54 Anaerobic Culture - Pending Scrotum Intake and Output - 24 Hour Total 08/23/24 11:54 thru 08/23/24 16:38 Intake Total 550 Balance 550 Weight 265 lb Intake: IV 550 Other: Urine Color Yellow Urine Appearance Clear Urine Odor None Comment pt ind. voided in toilet Falls Risk Assessment History of Falls No History 08/23/24 16:35 Contributing Factors No Factors 08/23/24 16:35 Ambulatory Aids Independent 08/23/24 16:35 Tubes/Lines None 08/23/24 16:35 Gait Evaluation No gait disturbance 08/23/24 16:35 Cognition No cognitive impairment 08/23/24 16:35 Fall Total Score 0 08/23/24 16:35 Level of Risk Standard/Low Risk 08/23/24 16:35 Problems (Last Reviewed 05/30/24 @ 23:22 by Camila Botello DO) Abscess of thigh (Acute) MRSA infection (Acute) Abscess of scrotum (Acute) Scrotal abscess (Acute) MRSA (methicillin resistant Staphylococcus aureus) infection (Acute) Hypertension (Chronic) Notes 08/23/24 14:49 Nursing Notes by Negro Gonsalez PT resting quietly. Nursing Note: Initialized on 08/23/24 14:49 - END OF NOTE v v v v v v v v v Sending and/or Receiving Nurses: Please use comment section below to note any information pertinent to the patient hand-off not included above. Information / Comments: Report received from: Omar JACQUES
[2024-08-23] MEDS: Normal Saline Flush 10 ML SYR IVP (19:34)
[2024-08-23] MEDS: VANCOMYCIN/WATER (PEG) 1.5 GM/300 ML BAG IVPB (19:34)
[2024-08-24 02:48] VITALS: BP 102/56; PULSE 60; RESP 15; TEMP 36.3; O2SAT 97
[2024-08-24 06:41] LABS: HCT 35.1 % (40.0-50.0); HGB 11.8 g/dL (13.5-17.5); MCH 32.3 pg (27.0-33.0); MCHC 33.6 % (32.0-36.0); MCV 96 fL (80-95); MPV 9.2 fL (8.0-11.0); Platelet Count 305 10^3/uL (130-400); RBC 3.65 10^6/uL (4.36-5.78); RDW 13.3 % (11.8-14.1); RDW-SD 47.6 fL; WBC 6.11 10^3/uL (4.4-10.8)
[2024-08-24 06:52] LABS: Anion Gap 6.7 mmol/L (3-11); BUN 13 mg/dL (7-18); CO2 31.3 mmol/L (21.0-32.0); CREATININE 0.8 mg/dL (0.70-1.30); Calcium 8.3 mg/dL (8.5-10.1); Chloride 105 mmol/L (98-107); Estimated GFR 100.06 (mL/min/1.73m2); Glucose 95 mg/dL (74-106); Potassium 3.8 mmol/L (3.5-5.1); Sodium 143 mmol/L (136-145)
[2024-08-24 06:58] LABS: Vancomycin, Random 13.8 ug/mL
[2024-08-24 07:52] VITALS: BP 100/71; PULSE 72; RESP 18; TEMP 37.2; O2SAT 97
[2024-08-24] MEDS: Enoxaparin 40 MG/0.4 ML SYR SC (08:26)
[2024-08-24] MEDS: Acetaminophen 325 MG TAB PO (08:26)
[2024-08-24] MEDS: VANCOMYCIN/WATER (PEG) 1.5 GM/300 ML BAG IVPB (08:35)
--- NOTE | 2024-08-24 10:36 | PDOC.HHF2F_ITS ---
Home Health Referral Home Health Orders Clinical synopsis of why skilled professionals are needed: Inguinal and scrotal abscesses Registered Nurse: Check all that apply Instruct on new or changed medication(s)/assess compliance: Ordered Assess for exacerbation of medical condition, instruct patient/caregivers on signs and symptoms to report for early detection: Ordered Assess wound for signs and symptoms of infection, instruct on wound care and/or provide skilled wound care consisting of: Suprapubic and scrotal wounds requiring BID packing and dressing changes Encounter Date and Reason: I certify that a FTF encounter for this patient was performed on August 24, 2024 and that such encounter was related to the primary reason the patient requires home health services. The encounter was conducted in the following manner: * By me as the certifying physician, BANKING SERVICES OFFICER, PA or * By an inpatient physician, BANKING SERVICES OFFICER or PA during an inpatient stay who communicated findings to me, Certification And Authentication I certify that I composed the above information based on my clinical judgment relating to this patient's medical condition and, if applicable, clinical findings communicated to me by the NPP or inpatient physician who performed the FTF encounter. Name of Provider that will be monitoring home health services: Meghna Clark
--- NOTE | 2024-08-24 10:38 | DSE_ITS ---
Date of service: 08/24/24 Time of Service: 10:38 DS: Diagnosis Discharge Diagnosis (1) Scrotal abscess: Status: Acute (2) MRSA (methicillin resistant Staphylococcus aureus) infection: Status: Acute (3) Hypertension: Status: Chronic Discharge Plan Disposition Patient Disposition: Home W/Home Health Services Condition: Good Discharge Details Reason For Visit: Mrsa Admit Date/Time: 08/23/24 16:16 Admit Provider: Leander Greenwood Attending Provider: Leander Greenwood Primary Care Provider: Meghna Clark Hospital Course Hospital Course: Patient initially presented with signs and symptoms of what appeared to be failed outpatient therapy for suprapubic and scrotal/and upper thigh abscesses. Patient was on p.o. linezolid, which initial cultures confirmed infection was sensitive to. However, given that there were multiple abscesses, patient required incision and drainage by surgery which was performed on 08/23/2024. Given that the patient had incision and drainage and has cultures confirming sensitivity to linezolid, it is determined that patient was stable for discharge. General surgery will set up outpatient appointment for follow-up, and patient and his will be educated on what is recommended twice daily dressing and a package changing of his wounds. Home Meds and New Rx's Prescriptions: Continued aspirin [Adult Low Dose Aspirin] 81 mg tablet,delayed release (DR/EC) 81 mg PO DAILY epinephrine [EpiPen 2-Anibal] 0.3 mg/0.3 mL auto-injector 0.3 mg IM ONCE omega-3 fatty acids [Fish Oil Concentrate] 1,000 mg capsule 1,000 mg PO DAILY nystatin 100,000 unit/gram cream 1 applic topical BID Qty: 30 0RF mupirocin 2 % ointment 1 applic topical BID Qty: 22 0RF Rx Instructions: apply to each nare w/qtip BID for 10 days glucosamine-chondroitin [Osteo Bi-Flex] 250-200 mg tablet 2 tab PO DAILY Rx Instructions: give after food/meal linezolid 600 mg tablet 600 mg PO Q12H Qty: 20 0RF hydrochlorothiazide 25 mg tablet 25 mg PO DAILY Qty: 90 3RF lisinopril 20 mg tablet 20 mg PO DAILY Qty: 90 3RF Discharge Instructions Activity:: Activity as Tolerated Equipment/Supplies:: No Equipment Needed Diet:: As Tolerated Discharge Orders Discharge Orders: Discharge Order (Routine); Ordered 08/24/24 Ordered By: Leander Greenwood DS: Summary Time Spent with Patient providing and/or coordinating discharge services: Greater than 30 minutes Status at Discharge Functional status at discharge: independent ambulation Overall status at discharge: patient is back to baseline Mental Status: mental status grossly normal Speech and Movement: speech and movement normal Mood: congruent mood Affect: normal affect Quality:SDOH Health Related Social Needs: Health related social needs problems related to housin g/economic circumstances (Z59.89) Exam Narrative Exam Narrative: Well-appearing older gentleman laying in bed in no acute distress, ANO x 4, heart regular rhythm, lungs clear to auscultation bilaterally, abdomen soft, nontender, nondistended, bandage over recently operated on incision and drainage of the right upper inner thigh/base of scrotal cellulitis without signs of surrounding erythema or drainage Psych Mental Status: mental status grossly normal Speech and Movement: speech and movement normal Mood: congruent mood Affect: normal affect DS: Data Vitals/I&O Vitals and I&O: Vital Signs Temperature 99.0 F 08/24/24 07:52 Temperature Source Temporal Artery Scan 08/24/24 07:52 Pulse 72 08/24/24 07:52 Pulse Rhythm Regular 08/23/24 16:35 Respiratory Rate 18 08/24/24 07:52 Respiratory Effort Normal, Non-Labored 08/23/24 16:35 Respiratory Depth Normal 08/23/24 16:35 Respiratory Pattern Normal 08/23/24 16:35 Blood Pressure 100/71 08/24/24 07:52 Blood Pressure Position Sitting 08/23/24 11:58 Pulse Oximetry 97 08/24/24 07:52 Oxygen Delivery Method Room Air 08/24/24 07:52 Oxygen Flow Rate 0 08/24/24 07:52 Pain Level 3 08/24/24 08:26 Intake & Output 08/23/24 08/24/24 08/24/24 17:59 05:59 17:59 Intake Total 550 / 550 2231.668 / 2781.668 Balance 550 / 550 2231.668 / 2781.668 Weight 265 lb Intake: IV 550 / 550 1990.668 / 2541.668 Oral 240 / 240 Other: Urine Color Yellow Yellow Urine Appearance Clear Clear Urine Odor None Comment pt ind. voided in toilet Data Completed and Pending Labs on day of discharge: Labs from last 24 hours 08/24/24 08/23/24 06:05 12:16 WBC 6.11 7.31 RBC 3.65 L 4.11 L Hgb 11.8 L 13.0 L Hct 35.1 L 39.8 L MCV 96 H 97 H MCH 32.3 31.6 MCHC 33.6 32.7 RDW 13.3 13.4 Plt Count 305 377 MPV 9.2 8.9 Immature Gran % 0.3 Neutrophils % 64.8 Lymphocytes % 16.7 Monocytes % 13.8 Eosinophils % 4.1 Basophils % 0.3 Nucleated RBC % 0.0 Absolute Neutrophils 4.74 Absolute Lymphocytes 1.22 Absolute Monocytes 1.01 H Absolute Eosinophils 0.30 Absolute Basophils 0.02 Sodium 143 142 Potassium 3.8 3.8 Chloride 105 103 Carbon Dioxide 31.3 30.2 Anion Gap 6.7 8.8 BUN 13 15 Creatinine 0.8 0.9 Est GFR (CKD-EPI 2020) 100.06 96.57 Glucose 95 98 Calcium 8.3 L 9.2 Magnesium 2.0 Random Vancomycin 13.8 08/23/24 15:54 Scrotum Surgical Culture - Pending 08/23/24 15:54 Thigh - Right Surgical Culture - Pending 08/23/24 15:54 Thigh - Right Anaerobic Culture - Pending 08/23/24 15:54 Scrotum Anaerobic Culture - Pending Preliminary micro results at discharge 08/23/24 15:54 Surgical Culture - Pending Scrotum 08/23/24 15:54 Surgical Culture - Pending Thigh - Right 08/23/24 15:54 Anaerobic Culture - Pending Thigh - Right 08/23/24 15:54 Anaerobic Culture - Pending Scrotum [facility] All Active Problems (Updated 08/23/24 @ 16:17 by RADHA JONES) Abscess of thigh (Acute) MRSA infection (Acute) Abscess of scrotum (Acute) Scrotal abscess (Acute) Open wound of scrotum (Acute) Cellulitis (Acute) Hx MRSA infection (Acute) Intertrigo (Acute) MRSA (methicillin resistant Staphylococcus aureus) infection (Acute) Abscess of pubic region (Acute) left Elevated lipids (Acute) Cellulitis of groin (Acute) right Decreased hearing (Acute) Degenerative joint disease of knee (Acute) Osteoarthritis of right glenohumeral joint (Acute) Knee pain, bilateral (Acute) Snoring (Acute) Abnormal cholesterol test (Acute) Degenerative joint disease of right knee (Acute) DEPO MEDROL 07/25/22 Left knee DJD (Acute) DEPO MEDROL 07/25/22 Diverticulosis (Acute) S/P colonoscopy (Acute ~03/11/19) 2009- sessile serrated adenoma and hyperplastic polyp Bee sting allergy (Acute) Obesity (Chronic) Hypertension (Chronic) Medical History (Updated 08/23/24 @ 16:17 by RADHA JONES) Screening for colon cancer Allergic rhinitis Allergy to insects and arachnids Tobacco use disorder Strain of right calf muscle Resolved - Placed at [facility] on 05/13/2022 History of colon polyps Surgical History (Updated 06/10/24 @ 11:08 by Camila Botello DO) H/O drainage of abscess Left suprapubic region History of surgical removal of skin lesion R under arm Family History Sister Breast cancer Hypertension Mother Diabetes Hypertension Father Hypertension Social History Smoking/Tobacco Use Status: Never Smokeless tobacco user: chewing tobacco Quit status: has quit before Second Hand Exposure: Yes Smoking risk assessment performed?: Yes Alcohol Intake: current Alcohol Intake frequency: 0-2 drinks per day Alcohol type: beer Drug use: Never Substance use type: does not use Details: last chew: [id number]. 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 [employer] Pets and animals: Yes Pets and animals: cat(s) Sexually active: Yes Do you think of yourself as: straight/heterosexual Current gender identity: male What is your relationship status?: How often do you talk on the phone with friends or family?: twice per week How often do you get together with friends or relatives?: twice per week Do you belong to any clubs or organized social groups?: no Panel score (0-1 are the most socially isolated patients): 2 What type of physical activity do you participate in: walking and additional Details: stretching Duration: 30-45 minutes/day Frequency: daily Nuria/Buddhist: Alevism Special nuria needs: No Seatbelt use: always Drive intox or ride w/intox livery car driver: No Do you feel safe at home: Yes Do you feel safe in your relationship?: Yes Time Spent with Patient Time Spent with Patient: <45 minutes Time was spent: preparing to see the patient(eg.review tests), obtaining and/or reviewing separately otained hiistory, ordering medications,tests, procedures, referring, communicating with other health foster care case manager, indepentently interpreting results, counseling the patient and care coordination
[2024-08-24] MEDS: Normal Saline Flush 10 ML SYR IVP (12:54)
[2024-08-24] MEDS: cefTRIAXone 1 GM/50 ML BAG IVPB (12:54)
--- NOTE | 2024-08-24 16:16 | CMPROGNOTE_ITS ---
Date of service: 08/24/24 Time of Service: 16:16 Care Management Progress Note Progress Note Text Progress Note Text: Sushil was admitted yesterday afternoon with c/o right suprapubic, right scrotal, right thigh abscess. He tolerated the procedure well, and was discharged home this afternoon. His , Gill, was taught how to do the dressings, and HH was also ordered to evaluate the wound and assure proper care. Wound care is ordered for 2x/day. Sushil and Gill were made aware that HH can not visit twice daily, and it will be expected that Gill will take over care. Sushil and Gill are in full agreement with this plan, as they have gone through it before. Sushil was given a return to work letter to return at discretion of the surgeon at follow up. Discharge Potential Discharge Needs: PCP F/U Appt and Surgical F/U Appt (appts have not been made as it is the weekend. Sushil will f/u with his providers on Monday to secure appointments.) Anticipated Barriers to Discharge: None Identified Patient/Family Education Needs: Review discharge instructions, discuss Ask Me Three (wound care ) Transportation: Private vehicle Plan: Sushil was discharged home this afternoon with new RN services for wound care. He will f/u with his PCP and his surgeon, and continue per his plan of care. Eduarda coronel was driven home by his . Social Determinants of Health Screening Social Determinants of Health last assessed: 08/24/24 Will the Patient Participate in the Screening?: Yes Do you worry about having a steady place to live?: no Problems where you live: no known problems In the past 12 months, have you had to go without electric, gas, oil or water in your home?: no Have you or anyone in your house had to go without enough food to eat?: no Has lack of transportation kept you from medical appointments or from doing things needed for daily living?: no Has anyone in your life made you feel unsafe or unsupported?: no How hard is it for you to pay for the very basics like food, housing, medical care, and heating? Would you say it is:: Very hard Do you want help finding or keeping work or a job?: I do not need or want help If for any reason you need help with day-to-day activities such as bathing, preparing meals, shopping, managing finances, etc., do you get the help you need?: I don?t need any help How often do you feel lonely or isolated from those around you?: Never Do you speak a language other than Macanese at home?: No Does the patient want assistance with any of the above?: No Health Related Social Needs Health related social needs: problems related to housing/economic circumstances (Z59.89)
== END 2024-08-24 16:10 | disposition home health service (06) | DRG 717 ==
LOC: ER 15:13 → SUR 15:27 → MS 16:17
PROVIDERS: Surgery; Admitting Provider Family Medicine; Emergency Provider Emergency Medicine; PCP Nurse Practitioner Family; Responsible Provider Family Medicine; Visit Provider Family Medicine
PROC: 0J9L0ZZ Drainage of Right Upper Leg Subcutaneous Tissue and Fascia, Open Approach (ICD-10-PCS; CPT 27301; principal; 2024-08-23 14:45)
DX: N49.2 Inflammatory disorders of scrotum (principal); L02.211 Cutaneous abscess of abdominal wall; L02.415 Cutaneous abscess of right lower limb; Z68.38 Body mass index [BMI] 38.0-38.9, adult; I10 Essential (primary) hypertension; F17.220 Nicotine dependence, chewing tobacco, uncomplicated; B95.62 Methicillin resistant Staphylococcus aureus infection as the cause of diseases classified elsewhere; Z79.82 Long term (current) use of aspirin; Z79.899 Other long term (current) drug therapy; L30.4 Erythema intertrigo; E78.5 Hyperlipidemia, unspecified; M17.12 Unilateral primary osteoarthritis, left knee; E66.9 Obesity, unspecified; J30.9 Allergic rhinitis, unspecified; Z59.89 Other problems related to housing and economic circumstances
CPT/HCPCS: 27301; 55100; 10060; 00123; 36415; 80048; 85027; 87077; 96361; 96365; 96366; 96367; 99285; J1650; 72193; 73701; 80202; 83735; 85025; 87070; 87075; 87186; 87205; 99223; 99239; G0378; J0696; J1885; J2250; J2405; J2704; J3370; J3372; J3490